=== PATIENT | male | born 1990 | race Two or more races ===

== ENCOUNTER 2025-02-02 05:55 | Emergency (ER) | payer SELFPAY ==
[2025-02-02] VITALS (13 sets, daily range): BP systolic 139–178; BP diastolic 81–116; PULSE 80–93; RESP 15–16; TEMP 36.6; O2SAT 96–100; BMI 27.3
--- NOTE | 2025-02-02 06:02 | ED_ITS ---
Discharge Plan Disposition Patient Disposition: Home, Self-Care Prescriptions Prescriptions: New metformin 1,000 mg tablet 1,000 mg PO BID Qty: 60 0RF insulin glargine [Lantus Solostar U-100 Insulin] 100 unit/mL (3 mL) insulin pen 10 unit SQ BID Qty: 30 0RF Referrals Follow up/Referrals: Provider,Referral, [Primary Care Provider] - See instructions Activity Restrictions/Add. Instructions Additional Instructions/Restrictions: Prescription for your insulin and metformin have been sent to the [facility] pharmacy. Pick this up at your earliest convenience. Call the numbers provided to you to establish care with a primary care physician and continue to work on getting her insurance transferred over for refills of your medications. If you develop any new or worsening symptoms, or if you become concerned for your health for any reason, return to the emergency department for evaluation Clinical Impressions Clinical Impression: Hyperglycemia Stand Alone Forms Stand Alone Forms: Work/School Release Print Language Print Language: Uzbek Discharge ED Provider: Alessandro Richardson General Adult HPI <Chad Steward MD - Last Filed: 02/02/25 07:06> General Chief complaint: Recheck/Abnormal Lab/Rx Stated complaint: diabetic, blood sugar over 400 Time Seen by Provider: 02/02/25 06:02 History of Present Illness HPI narrative: 35-year-old male with history of diabetes presents for hyperglycemia. He reports his blood sugars been over 400 for the last couple of days. He normally takes long-acting insulin twice a day and short acting insulin 3 times a day, but he is not sure which formulation or dose he takes. He also takes metformin. He has been unable to get his medications since he recently moved from [place]. He has been without insulin or metformin for the last 2 weeks. He reports today when he went to work he started feeling weird and so presented to get checked out. He denies any urinary symptoms, denies any chest pain or shortness of breath, denies fever at home. Related Data Previous Rx's ?Medication ?Instructions ?Recorded insulin glargine 100 unit/mL (3 10 unit (0.1 mL) SQ BID #30 mL 02/02/25 mL) subcutaneous pen (Lantus Solostar U-100 Insulin) metformin 1,000 mg tablet 1,000 mg PO BID #60 tabs 02/02/25 Allergies Allergy/AdvReac Type Severity Reaction Status Date / Time No Known Allergies Allergy Verified 02/02/25 06:30 [facility] <Chad Steward MD - Last Filed: 02/02/25 07:06> [facility] Disclaimer: The information contained in this section may have been updated after the patient was seen, as this information can be updated by other users. Medical History (Updated 02/02/25 @ 10:09 by Alessandro Richardson MD) Insulin dependent diabetes mellitus Social History (Updated 02/02/25 @ 07:06 by Chad Steward MD) Smoking Status: Current every day smoker alcohol intake: current current occupational status: employed Travel in the last 8 weeks: None Have you lived/traveled outside US in past 30 days?: No Contact w/someone who lives/traveled outside US past 30 days?: No Exposure to someone with infectious disease in past 14 days?: No Do you have a fever (greater than 100.4 F or 38 C)?: No Have you tested positive for COVID-19: No Exposed to someone with COVID-19 in past 14 days?: No Do you have a sore throat?: No Do you have a cough?: No Do you have any weakness?: No Do you have any diarrhea?: No Are you experiencing any unusual bleeding?: No Do you have any muscle aches/pain?: No Do you have any abdominal pain?: No Are you experiencing loss of taste or smell?: No <Chad Steward MD - Last Filed: 02/02/25 07:06> ROS Obtained: Yes All systems reviewed & no additional complaints except as documented Physical Exam <Chad Steward MD - Last Filed: 02/02/25 07:06> General General appearance: alert and in no apparent distress Head Head exam: atraumatic and normocephalic Eye Eye exam: Present normal appearance, PERRL and EOMI ENT ENT exam: Present normal oropharynx and normal external ear exam Neck Neck exam: Present normal inspection and full ROM Chest Chest inspection: Present normal inspection and symmetric chest wall rise; Absent tenderness Respiratory Respiratory exam: Present normal lung sounds bilaterally; Absent respiratory distress Cardiovascular Cardiovascular exam: Present regular rate and normal rhythm Abdominal Exam Abdominal exam: Present soft; Absent distention, tenderness or guarding Extremities Exam Extremities exam: Present normal inspection; Absent edema or joint swelling Back Exam Back exam: Present normal inspection; Absent tenderness Neurological Exam Neurological exam: Present alert and oriented X3; Absent motor sensory deficit Psychiatric Psychiatric exam: Present normal affect and normal mood Skin Skin exam: Present warm, dry and normal color Lymphatic Lymphatic Findings: no adenopathy Medical Decision Making <Chad Steward MD - Last Filed: 02/02/25 07:06> Medical Records Medical records reviewed: Yes I reviewed the patient's medical records. Screening: Per USPSTF and CDC recommendations, given the prevalence of disease in our region, it is our hospital?s policy to screen for HIV and viral Hepatitis for all patients aged 18 and over and those with ongoing risk factors. David Inquiry Pt receiving controlled substance: No David was queried for this patient: No Vital Signs: 02/02/25 06:06 02/02/25 06:45 02/02/25 07:00 Temperature 97.9 F Temperature Source Oral Pulse Rate 85 83 Pulse Rate [Right Radial] 93 H Respiratory Rate 16 Blood Pressure 158/111 H 163/116 H Blood Pressure [Right Arm] 178/116 H Blood Pressure Mean 118 126 Blood Pressure Mean [Right Arm] 136 Blood Pressure Source Blood Pressure Source [Right Arm] Automatic Cuff Blood Pressure Position Blood Pressure Position [Right Arm] Supine 02 Sat by Pulse Oximetry 100 98 99 Oxygen Delivery Method Room Air Room Air Room Air 02/02/25 07:27 02/02/25 07:30 02/02/25 07:45 Temperature Temperature Source Pulse Rate 80 89 86 Pulse Rate [Right Radial] Respiratory Rate 16 Blood Pressure 155/105 H 140/113 H 163/104 H Blood Pressure [Right Arm] Blood Pressure Mean 121 131 Blood Pressure Mean [Right Arm] Blood Pressure Source Blood Pressure Source [Right Arm] Blood Pressure Position Blood Pressure Position [Right Arm] 02 Sat by Pulse Oximetry 97 99 98 Oxygen Delivery Method Room Air 02/02/25 08:00 02/02/25 08:16 02/02/25 08:45 Temperature Temperature Source Pulse Rate 84 85 84 Pulse Rate [Right Radial] Respiratory Rate Blood Pressure 162/108 H 162/104 H 143/91 H Blood Pressure [Right Arm] Blood Pressure Mean 127 124 108 Blood Pressure Mean [Right Arm] Blood Pressure Source Blood Pressure Source [Right Arm] Blood Pressure Position Blood Pressure Position [Right Arm] 02 Sat by Pulse Oximetry 98 99 98 Oxygen Delivery Method Room Air Room Air Room Air 02/02/25 09:00 02/02/25 09:30 02/02/25 10:00 Temperature Temperature Source Pulse Rate 85 89 89 Pulse Rate [Right Radial] Respiratory Rate Blood Pressure 158/94 H 148/105 H 150/91 H Blood Pressure [Right Arm] Blood Pressure Mean 115 117 132 Blood Pressure Mean [Right Arm] Blood Pressure Source Blood Pressure Source [Right Arm] Blood Pressure Position Blood Pressure Position [Right Arm] 02 Sat by Pulse Oximetry 99 96 97 Oxygen Delivery Method Room Air Room Air Room Air 02/02/25 10:22 Temperature 98 F Temperature Source Oral Pulse Rate 89 Pulse Rate [Right Radial] Respiratory Rate 15 Blood Pressure 139/81 Blood Pressure [Right Arm] Blood Pressure Mean Blood Pressure Mean [Right Arm] Blood Pressure Source Automatic Cuff Blood Pressure Source [Right Arm] Blood Pressure Position Sitting Blood Pressure Position [Right Arm] 02 Sat by Pulse Oximetry Oxygen Delivery Method Room Air Lab Data Lab results reviewed: Yes I reviewed the patient's lab results. Lab Results 02/02/25 06:10: VBG pH 7.33, VBG pCO2 54.1 H, VBG pO2 26.8 L, VBG HCO3 27.7, VBG Total CO2 29.4 H, VBG O2 Saturation 47.7 L, VBG Base Excess 1.7, VBG Lactic Acid 2.1 H 02/02/25 06:12: WBC 3.3 L, RBC 4.86, Hgb 14.1, Hct 41.7 L, MCV 85.8, MCH 29.0, MCHC 33.8, RDW 11.9, Plt Count 300, MPV 9.4, Neut % (Auto) 52.2, Lymph % (Auto) 31.3, [place] % (Auto) 12.3 H, Eos % (Auto) 3.0, Baso % (Auto) 0.6, Neut # (Auto) 1.7 L, Lymph # (Auto) 1.0, [place] # (Auto) 0.4, Eos # (Auto) 0.1, Baso # (Auto) 0.0, Sodium 135 L, Potassium 5.2 H, Chloride 99, Carbon Dioxide 29, Anion Gap 12.2, BUN 15, Creatinine 0.90, Estimated Creat Clear 129, Estimated GFR 96, Est GFR ( Amer) 116, Glucose 494 H*, Calcium 9.4, Magnesium 1.6, Total Bilirubin 0.3, AST 37, ALT 39, Alkaline Phosphatase 95, Total Protein 7.6, Albumin 4.6, Globulin 3.0, Albumin/Globulin Ratio 1.5, Acetone Level None detected, SARS-CoV-2 (PCR) Not detected, Influenza A Untype (PCR) Not detected, Influenza Type B (PCR) Not detected 02/02/25 07:36: Urine Color Yellow, Urine Appearance Clear, Urine pH 7.0, Ur Specific [place] 1.010, Urine Protein Negative, Urine Glucose (UA) >=1000, Urine Ketones Negative, Urine Blood Negative, Urine Nitrate Negative, Urine Bilirubin Negative, Urine Urobilinogen 0.2, Ur Leukocyte Esterase Trace, Urine RBC None, Urine WBC None, Ur Squamous Epith Cells 3-5, Urine Bacteria Trace 02/02/25 06:12 02/02/25 06:12 Orders (Tests/Meds): ED MEDICATIONS Discontinued Medications Generic Name Dose Route Start Last Admin Trade Name Freq PRN Reason Stop Dose Admin Sodium Chloride 1,000 mls @ 999 mls/hr 02/02/25 06:15 02/02/25 06:32 Sod Chlor 0.9% 1000ml Bag IV 02/02/25 07:15 999 mls/hr .Q1H1M DAYLIN Administration Sodium Chloride 1,000 mls @ 999 mls/hr 02/02/25 07:00 02/02/25 07:30 Sod Chlor 0.9% 1000ml Bag IV 02/02/25 08:00 999 mls/hr .Q1H1M DAYLIN Administration Insulin Human Lispro 20 unit 02/02/25 07:00 02/02/25 07:17 Humalog 100 Units/Ml 10ml Vial (Ssi) SUBCUT 02/02/25 07:01 20 unit ONCE ONE Administration Metformin HCl 1,000 mg 02/02/25 07:02 02/02/25 07:18 Metformin 500mg Tablet PO 02/02/25 07:03 1,000 mg ONCE ONE Administration ORDERS Category Date Time Status Acetone, Serum (Rapid) Stat Lab 02/02/25 06:12 Completed CBC w/Auto Diff [Complete Blood Count Auto Diff] Stat Lab 02/02/25 06:12 Completed CMP [Comprehensive Metabolic Panel] Stat Lab 02/02/25 06:12 Completed Magnesium Stat Lab 02/02/25 06:12 Completed Rapid PCR Covid and Flu A/B Stat Lab 02/02/25 06:12 Completed UA [Urinalysis and Microscopic] Stat Lab 02/02/25 07:36 Completed Blood Culture Stat Micro 02/02/25 06:12 Received VBG [Venous Blood Gas] Stat RT 02/02/25 06:10 Completed Medical Decision Narrative: 35-year-old male with history of insulin-dependent diabetes presents for hyperglycemia, feeling weak, shaky, feels like his speech is not normal. History was obtained via interactive discussion with patient. On arrival, patient is [afebrile, hemodynamically stable, satting appropriately, alert, oriented x4, GCS 15], moving all extremities spontaneously. Full physical exam performed and significant for midline laparotomy scar noted. Fingerstick on arrival 493 Differential includes but is not limited to DKA, HHS, hyperglycemia, dehydration, electrolyte derangement. Patient was given 1 L IV fluid bolus for symptomatic management and correction of underlying abnormalities. Workup initiated including CBC CMP VBG UA lactate, mag blood cultures COVID flu swab. On re-evaluation, patient [remains afebrile, HD stable.] Laboratory workup independently interpreted by me and significant for []. Imaging independently interpreted by me and significant for []. See radiology read for full review of final results. EKG independently interpreted by me and significant for []. [] was considered, but deemed unnecessary due to []. Given patient history, exam and workup, patient's presentation most likely represents []. <Alessandro Richardson MD - Last Filed: 02/02/25 15:54> Vital Signs: 02/02/25 06:06 02/02/25 06:45 02/02/25 07:00 Temperature 97.9 F Temperature Source Oral Pulse Rate 85 83 Pulse Rate [Right Radial] 93 H Respiratory Rate 16 Blood Pressure 158/111 H 163/116 H Blood Pressure [Right Arm] 178/116 H Blood Pressure Mean 118 126 Blood Pressure Mean [Right Arm] 136 Blood Pressure Source Blood Pressure Source [Right Arm] Automatic Cuff Blood Pressure Position Blood Pressure Position [Right Arm] Supine 02 Sat by Pulse Oximetry 100 98 99 Oxygen Delivery Method Room Air Room Air Room Air 02/02/25 07:27 02/02/25 07:30 02/02/25 07:45 Temperature Temperature Source Pulse Rate 80 89 86 Pulse Rate [Right Radial] Respiratory Rate 16 Blood Pressure 155/105 H 140/113 H 163/104 H Blood Pressure [Right Arm] Blood Pressure Mean 121 131 Blood Pressure Mean [Right Arm] Blood Pressure Source Blood Pressure Source [Right Arm] Blood Pressure Position Blood Pressure Position [Right Arm] 02 Sat by Pulse Oximetry 97 99 98 Oxygen Delivery Method Room Air 02/02/25 08:00 02/02/25 08:16 02/02/25 08:45 Temperature Temperature Source Pulse Rate 84 85 84 Pulse Rate [Right Radial] Respiratory Rate Blood Pressure 162/108 H 162/104 H 143/91 H Blood Pressure [Right Arm] Blood Pressure Mean 127 124 108 Blood Pressure Mean [Right Arm] Blood Pressure Source Blood Pressure Source [Right Arm] Blood Pressure Position Blood Pressure Position [Right Arm] 02 Sat by Pulse Oximetry 98 99 98 Oxygen Delivery Method Room Air Room Air Room Air 02/02/25 09:00 02/02/25 09:30 02/02/25 10:00 Temperature Temperature Source Pulse Rate 85 89 89 Pulse Rate [Right Radial] Respiratory Rate Blood Pressure 158/94 H 148/105 H 150/91 H Blood Pressure [Right Arm] Blood Pressure Mean 115 117 132 Blood Pressure Mean [Right Arm] Blood Pressure Source Blood Pressure Source [Right Arm] Blood Pressure Position Blood Pressure Position [Right Arm] 02 Sat by Pulse Oximetry 99 96 97 Oxygen Delivery Method Room Air Room Air Room Air 02/02/25 10:22 Temperature 98 F Temperature Source Oral Pulse Rate 89 Pulse Rate [Right Radial] Respiratory Rate 15 Blood Pressure 139/81 Blood Pressure [Right Arm] Blood Pressure Mean Blood Pressure Mean [Right Arm] Blood Pressure Source Automatic Cuff Blood Pressure Source [Right Arm] Blood Pressure Position Sitting Blood Pressure Position [Right Arm] 02 Sat by Pulse Oximetry Oxygen Delivery Method Room Air Lab Data Lab Results 02/02/25 06:10: VBG pH 7.33, VBG pCO2 54.1 H, VBG pO2 26.8 L, VBG HCO3 27.7, VBG Total CO2 29.4 H, VBG O2 Saturation 47.7 L, VBG Base Excess 1.7, VBG Lactic Acid 2.1 H 02/02/25 06:12: WBC 3.3 L, RBC 4.86, Hgb 14.1, Hct 41.7 L, MCV 85.8, MCH 29.0, MCHC 33.8, RDW 11.9, Plt Count 300, MPV 9.4, Neut % (Auto) 52.2, Lymph % (Auto) 31.3, [place] % (Auto) 12.3 H, Eos % (Auto) 3.0, Baso % (Auto) 0.6, Neut # (Auto) 1.7 L, Lymph # (Auto) 1.0, [place] # (Auto) 0.4, Eos # (Auto) 0.1, Baso # (Auto) 0.0, Sodium 135 L, Potassium 5.2 H, Chloride 99, Carbon Dioxide 29, Anion Gap 12.2, BUN 15, Creatinine 0.90, Estimated Creat Clear 129, Estimated GFR 96, Est GFR ( Amer) 116, Glucose 494 H*, Calcium 9.4, Magnesium 1.6, Total Bilirubin 0.3, AST 37, ALT 39, Alkaline Phosphatase 95, Total Protein 7.6, Albumin 4.6, Globulin 3.0, Albumin/Globulin Ratio 1.5, Acetone Level None detected, SARS-CoV-2 (PCR) Not detected, Influenza A Untype (PCR) Not detected, Influenza Type B (PCR) Not detected 02/02/25 07:36: Urine Color Yellow, Urine Appearance Clear, Urine pH 7.0, Ur Specific [place] 1.010, Urine Protein Negative, Urine Glucose (UA) >=1000, Urine Ketones Negative, Urine Blood Negative, Urine Nitrate Negative, Urine Bilirubin Negative, Urine Urobilinogen 0.2, Ur Leukocyte Esterase Trace, Urine RBC None, Urine WBC None, Ur Squamous Epith Cells 3-5, Urine Bacteria Trace Orders (Tests/Meds): ED MEDICATIONS Discontinued Medications Generic Name Dose Route Start Last Admin Trade Name Freq PRN Reason Stop Dose Admin Sodium Chloride 1,000 mls @ 999 mls/hr 02/02/25 06:15 02/02/25 06:32 Sod Chlor 0.9% 1000ml Bag IV 02/02/25 07:15 999 mls/hr .Q1H1M [facility]LIN Administration Sodium Chloride 1,000 mls @ 999 mls/hr 02/02/25 07:00 02/02/25 07:30 Sod Chlor 0.9% 1000ml Bag IV 02/02/25 08:00 999 mls/hr .Q1H1M DAYLIN Administration Insulin Human Lispro 20 unit 02/02/25 07:00 02/02/25 07:17 Humalog 100 Units/Ml 10ml Vial (Ssi) SUBCUT 02/02/25 07:01 20 unit ONCE ONE Administration Metformin HCl 1,000 mg 02/02/25 07:02 02/02/25 07:18 Metformin 500mg Tablet PO 02/02/25 07:03 1,000 mg ONCE ONE Administration ORDERS Category Date Time Status Acetone, Serum (Rapid) Stat Lab 02/02/25 06:12 Completed CBC w/Auto Diff [Complete Blood Count Auto Diff] Stat Lab 02/02/25 06:12 Completed CMP [Comprehensive Metabolic Panel] Stat Lab 02/02/25 06:12 Completed Magnesium Stat Lab 02/02/25 06:12 Completed Rapid PCR Covid and Flu A/B Stat Lab 02/02/25 06:12 Completed UA [Urinalysis and Microscopic] Stat Lab 02/02/25 07:36 Completed Blood Culture Stat Micro 02/02/25 06:12 Received VBG [Venous Blood Gas] Stat RT 02/02/25 06:10 Completed Medical Decision Narrative: 35-year-old male with history of insulin-dependent diabetes presents for hyperglycemia, feeling weak, shaky, feels like his speech is not normal. History was obtained via interactive discussion with patient. On arrival, patient is [afebrile, hemodynamically stable, satting appropriately, alert, oriented x4, GCS 15], moving all extremities spontaneously. Full physical exam performed and significant for midline laparotomy scar noted. Fingerstick on arrival 493 Differential includes but is not limited to DKA, HHS, hyperglycemia, dehydration, electrolyte derangement. Patient was given 1 L IV fluid bolus for symptomatic management and correction of underlying abnormalities. Workup initiated including CBC CMP VBG UA lactate, mag blood cultures COVID flu swab. On re-evaluation, patient [remains afebrile, HD stable.] Laboratory workup independently interpreted by me and significant for []. Imaging independently interpreted by me and significant for []. See radiology read for full review of final results. EKG independently interpreted by me and significant for []. [] was considered, but deemed unnecessary due to []. Given patient history, exam and workup, patient's presentation most likely represents []. Alessandro Richardson MD I assumed care of this patient at 0704 pending insulin dosing, metformin, UA with plan to contact patient's home pharmacy to determine what dose of insulin and metformin he takes at home. Workup interpreted by me personally. No evidence of DKA with pH normal at 7.33, lactic acid normal at 2.1. Elevated glucose of 494, potassium elevated at 5.2. COVID and flu negative. CBC unremarkable nonactionable. [facility] pharmacy was called at 9 AM and they state that he has not filled with any [facility] pharmacy in some time but per their previous records he took 10 units of Lantus twice daily as well as 1000 mg of metformin twice daily. Will send prescription for these to local [facility] pharmacy. Will provide resources for primary care establishment and encouraged him to continue working with insurance to give his medications transferred to a pharmacy here in [place]. Return precautions were given. All questions were answered. Repeat fingerstick blood glucose was in the 130s. He was then discharged from the emergency department in stable condition. Procedures <Chad Steward MD - Last Filed: 02/02/25 07:06> Risk/Benefits of Procedure(s) Were Explained: Yes Critical Care <Chad Steward MD - Last Filed: 02/02/25 07:06> Critical Care Time Critical Care Time: No
[2025-02-02 06:18] LABS: Coronavirus 19, PCR Not Detected (NotDetected); Influenza A, PCR Not Detected (NotDetected); Influenza B, PCR Not Detected (NotDetected)
[2025-02-02 06:20] LABS: VBG Base Excess 1.7 mmol/L (-2.4-2.3); VBG HCO3 27.7 mmol/L (23-30); VBG Oxygen Saturation 47.7 % (50-70); VBG PCO2 54.1 mmol/L (35-51); VBG PH 7.33 mmol/L (7.31-7.41); VBG PO2 26.8 mmol/L (28-40); VBG Total CO2 29.4 mmol/L (23-27)
[2025-02-02 06:22] LABS: Basophils % 0.6 % (0.1-2.0); Eosinophils # 0.1 K/mm3 (0.0-0.4); Hematocrit 41.7 % (42.0-52.0); Hemoglobin 14.1 g/dL (14.1-18.0); Lymphocytes % 31.3 % (10-50); Mean Corpuscular HGB Conc 33.8 g/dL (31.8-35.4); Mean Corpuscular Volume 85.8 fl (80-94); Mean Platelet Volume 9.4 fl (7.4-10.4); Monocytes # 0.4 K/mm3 (0.1-1.0); Monocytes % 12.3 % (1.7-9.3); Neutrophils # 1.7 K/mm3 (1.8-7.8); Neutrophils % 52.2 % (37.0-80.0); Platelet Count 300 K/mm3 (142-424); Red Blood Count 4.86 M/mm3 (4.60-6.20); Red Cell Distribution Width 11.9 % (11.5-17.5); White Blood Count 3.3 K/mm3 (4.8-10.8)
[2025-02-02 06:27] LABS: Lactate Venous 2.1 mmol/L (0.4-2.0)
[2025-02-02] MEDS: 0.9 % SODIUM CHLORIDE 1000ML 1,000 ML 999 ML IV ×2 (06:32→07:30)
[2025-02-02 06:41] LABS: Acetone, Serum (Rapid) None Detected (None Detect)
[2025-02-02 06:48] LABS: Albumin Level 4.6 g/dl (3.5-5.0); Chloride 99 mmol/L (98-107)
[2025-02-02 06:49] LABS: Potassium 5.2 mmoL/L (3.5-5.1); Sodium 135 mmol/L (136-145)
[2025-02-02 06:51] LABS: Alanine Aminotransferase 39 U/L (12-78); Alkaline Phosphatase 95 U/L (38-126); Anion Gap 12.2 mEq/L (5-15); Aspartate Amino Transferase 37 U/L (17-59); Bilirubin,Total 0.3 mg/dl (0.2-1.3); Blood Urea Nitrogen 15 mg/dl (9-20); Carbon Dioxide 29 mmol/L (22.0-30.0); Creatinine Clearance Estimated 129 mL/min (50-200); Estimated Glomerular Filt Rate 96 ml/min (>60); GFR (African American) 116 ML/MIN (>60)
[2025-02-02 06:52] LABS: Albumin/Globulin Ratio 1.5 (1.1-1.8); Calcium 9.4 mg/dl (8.4-10.2); Magnesium 1.6 mg/dl (1.6-2.3); Total Protein,Serum 7.6 g/dl (6.3-8.2)
[2025-02-02 06:56] LABS: Glucose 494 mg/dl (74-100)
[2025-02-02] MEDS: humaLOG 100 UNITS/ML 10ML VIAL (SSI) 20 UNIT SUBCUT (07:17)
[2025-02-02] MEDS: METFORMIN 500MG TABLET 1000 MG PO (07:18)
[2025-02-02 07:43] LABS: Microscopic, Urine URINE MICROSCOPIC (MICROSCOPIC)
[2025-02-02 07:45] LABS: Appearance,Urine CLEAR (Clear); Bilirubin,Urine Negative (Negative); Blood, Urine Negative (Negative); Color,Urine YELLOW (Yellow); Glucose,Urine (UA) >=1000 (Negative); Ketones,Urine Negative (Negative); Leukocyte Esterase,Urine TRACE (Negative); Nitrate,Urine Negative (Negative); Protein,Urine Negative (Negative); Urobilinogen,Urine 0.2 EU/dl (0.2)
--- NOTE | 2025-02-02 07:54 | PC.NURSE ---
0730- Patient A & O x 4. No distress noted, respirations are even and unlabored. Medicated per order. Patient expresses no needs at this time. 0748- Registration at bedside.
[2025-02-02 09:14] LABS: Bacteria,Urine Trace /lpf
--- NOTE | 2025-02-02 09:16 | PC.NURSE ---
FRANDY BHATIA CALLED [facility] TO CHECK ON MEDICATIONS FOR ER MD
--- NOTE | 2025-02-02 09:18 | PC.NURSE ---
Patients glucose was 130.
[2025-02-02 10:27] LABS: Reflex Lactic Add Lactic Reflex
== END 2025-02-02 10:31 | disposition home or self-care (01) ==
PROVIDERS: Emergency Medicine; Emergency Provider Student in an Organized Health Care Education/Training Program
DX: R73.9 Hyperglycemia, unspecified (principal); Z72.0 Tobacco use
CPT/HCPCS: 80053; 81001; 82009; 82803; 83735; 85025; 87040; 87636; 96360; 96361; 99284; J7030

== ENCOUNTER 2025-04-24 14:07 | Emergency (ER) | payer OTHER, SELFPAY ==
[2025-04-24 14:12] VITALS: BP 211/137; PULSE 102; RESP 18; TEMP 36.8; O2SAT 99; BMI 30.2
[2025-04-24 14:22] VITALS: PULSE 115; O2SAT 99
--- NOTE | 2025-04-24 14:27 | XR_ITS ---
PROCEDURE INFORMATION: Exam: XR Chest Exam date and time: 04/24/2025 2:50 PM Age: 35 years old Clinical indication: Shortness of breath; Additional info: SOA TECHNIQUE: Imaging protocol: Radiologic exam of the chest. Views: 1 view. COMPARISON: No relevant prior studies available. FINDINGS: Tubes, catheters and devices: EKG leads. Lungs: Unremarkable. No consolidation. Pleural spaces: Unremarkable. No pleural effusion. No pneumothorax. Heart/Mediastinum: Unremarkable. No cardiomegaly. Bones/joints: Unremarkable. IMPRESSION: No acute findings.
[2025-04-24 14:37] VITALS: BP 150/89; PULSE 99; RESP 28; O2SAT 99
--- NOTE | 2025-04-24 14:37 | ED_ITS ---
<Statement entered by Aye Cordon DO - 04/24/25 15:28> I was consulted by the [facility], and we discussed the complexity of the problems being addressed. I approved the treatment and management plan for this patient's care in the emergency department, thus performing a substantive portion of the medical decision making. Aye Cordon DO Discharge Plan Disposition Patient Disposition: Home, Self-Care Prescriptions Prescriptions: New insulin glargine [Lantus U-100 Insulin] 100 unit/mL solution 10 unit SQ BID 30 Days Qty: 6 0RF No Action metformin 1,000 mg tablet 1,000 mg PO BID Qty: 60 0RF insulin glargine [Lantus Solostar U-100 Insulin] 100 unit/mL (3 mL) insulin pen 10 unit SQ BID Qty: 30 0RF Referrals Follow up/Referrals: Rodrigo Jewell DO [Staff Physician, Family Practice] - See instructions Provider,Referral, MD [Primary Care Provider, Medical] - See instructions Activity Restrictions/Add. Instructions Additional Instructions/Restrictions: Today you were evaluated in the emergency department, your workup was overall unremarkable. You need to establish with a PCP. Please call the number listed on these discharge papers to make a follow-up appointment. Please return to the ED for worsening of condition. Please take your medication as directed. Clinical Impressions Clinical Impression: Hyperglycemia Instructions Patient Instructions: DI for Hyperglycemia -- Adult Print Language Print Language: Polish Discharge ED Provider: Aye Cordon General Adult HPI <Josephine Boyce APRN - Last Filed: 04/24/25 15:39> General Chief complaint: Recheck/Abnormal Lab/Rx Stated complaint: insulin dependent, needs medicine Time Seen by Provider: 04/24/25 14:33 Mode of Arrival: Ambulatory Source of Information: Patient Description of Symptoms (Recalled from ER Triage Doc. by RN): PT presents to the ED for medication refill. PT needs insulin. Type 1 DM. History of Present Illness HPI narrative: patient is a 35-year-old male PMHx DMT2 who presents to the ED requesting refill of his insulin and states he is mildly short of breath. Patient [place] and has been unable to obtain a PCP. He states that his diabetes is normally well-controlled however he does not check it daily. Related Data Previous Rx's ?Medication ?Instructions ?Recorded insulin glargine 100 unit/mL (3 10 unit (0.1 mL) SQ BI D #30 mL 02/02/25 mL) subcutaneous pen (Lantus Solostar U-100 Insulin) metformin 1,000 mg tablet 1,000 mg PO BID #60 tabs insulin glargine 100 unit/mL 10 unit (0.1 mL) SQ BID 3 0 days #6 04/24/25 subcutaneous solution (Lantus mL U-100 Insulin) Allergies Allergy/AdvReac Type Severity Reaction Status Date / Time No Known Allergies Allergy Verified 02/02/25 06:30 [facility] <Josephine Boyce APRN - Last Filed: 04/24/25 15:39> [facility] Disclaimer: The information contained in this section may have been updated after the patient was seen, as this information can be updated by other users. Medical History (Updated 04/24/25 @ 15:35 by Josephine Boyce APRN) Insulin dependent diabetes mellitus Social History (Updated 02/02/25 @ 07:06 by Chad Steward MD) Smoking Status: Current every day smoker alcohol intake: current current occupational status: employed Travel in the last 8 weeks?: None Have you lived/traveled outside [place] in past 30 days?: No Contact w/someone who lives/traveled outside US past 30 days?: No Exposure to someone with infectious disease in past 14 days?: No Do you have a fever (greater than 100.4 F or 38 C)?: No Have you tested positive for COVID-19?: No Exposed to someone with COVID-19 in past 14 days?: No Do you have a sore throat?: No Do you have a cough?: No Do you have any weakness?: No Do you have any diarrhea?: No Are you experiencing any unusual bleeding?: No Do you have any muscle aches/pain?: No Do you have any abdominal pain?: No Are you experiencing loss of taste or smell?: No <Josephine Boyce APRN - Last Filed: 04/24/25 15:39> ROS Obtained: Yes Systems reviewed as appropriate & no additional complaints except as documented Physical Exam <Josephine Boyce APRN - Last Filed: 04/24/25 15:39> General General appearance: alert and in no apparent distress Head Head exam: atraumatic and normocephalic Eye Eye exam: Present normal appearance and PERRL ENT ENT exam: Present normal exam Neck Neck exam: Present normal inspection Chest Chest inspection: Present normal inspection and symmetric chest wall rise; Absent tenderness Respiratory Respiratory exam: Present normal lung sounds bilaterally Cardiovascular Cardiovascular exam: Present regular rate Abdominal Exam Abdominal exam: Present soft and normal bowel sounds; Absent tenderness Extremities Exam Extremities exam: Present normal inspection and full ROM Back Exam Back exam: Present normal inspection and full ROM Neurological Exam Neurological exam: Present alert and oriented X3 Psychiatric Psychiatric exam: Present normal affect and normal mood Skin Skin exam: Present warm and dry Medical Decision Making <Josephine Boyce APRN - Last Filed: 04/24/25 15:39> Medical Records Screening: Per USPSTF and CDC recommendations, given the prevalence of disease in our region, it is our hospital?s policy to screen for HIV and viral Hepatitis for all patients aged 18 and over and those with ongoing risk factors. David Inquiry Pt receiving controlled substance: No Vital Signs: 04/24/25 14:12 04/24/25 14:22 04/24/25 14:37 Temperature 98.2 F Temperature Source Oral Pulse Rate 115 H 99 H Pulse Rate [Right] 102 H Respiratory Rate 18 28 H Blood Pressure 150/89 H Blood Pressure [Right Arm] 211/137 H Blood Pressure Mean Blood Pressure Mean [Right Arm] 161 Blood Pressure Source Blood Pressure Position 02 Sat by Pulse Oximetry 99 99 99 Oxygen Delivery Method Room Air 04/24/25 15:00 04/24/25 15:41 Temperature 98.1 F Temperature Source Oral Pulse Rate 90 78 Pulse Rate [Right] Respiratory Rate 26 H 15 Blood Pressure 147/89 H 156/99 H Blood Pressure [Right Arm] Blood Pressure Mean 104 Blood Pressure Mean [Right Arm] Blood Pressure Source Automatic Cuff Blood Pressure Position Supine 02 Sat by Pulse Oximetry 100 Oxygen Delivery Method Room Air Lab Data Lab Results 04/24/25 14:31: WBC 7.3, RBC 5.14, Hgb 14.4, Hct 42.0, MCV 81.7, MCH 28.0, MCHC 34.3, RDW 11.8, Plt Count 309, MPV 9.0, Neut % (Auto) 65.7, Lymph % (Auto) 25.0, Stevens % (Auto) 7.3, Eos % (Auto) 1.6, Baso % (Auto) 0.1, Neut # (Auto) 4.8, Lymph # (Auto) 1.8, Stevens # (Auto) 0.5, Eos # (Auto) 0.1, Baso # (Auto) 0.0, D-Dimer 0.43, Sodium 136, Potassium 4.3, Chloride 99, Carbon Dioxide 28, Anion Gap 13.3, BUN 15, Creatinine 0.70, Estimated Creat Clear 172, Estimated GFR 128, Est GFR ( Amer) 155, Glucose 324 H, Calcium 9.3, Total Bilirubin 0.4, AST 26, ALT 24, Alkaline Phosphatase 73, Troponin I < 0.01, Total Protein 7.8, Albumin 4.4, Globulin 3.4 H, Albumin/Globulin Ratio 1.3, Plasma/Serum Alcohol < 10 04/24/25 15:07: Urine Opiates Screen Negative, Urine Methadone Screen Negative, Ur Barbituates Screen Negative, Ur Phencyclidine Scrn Negative, Ur Amphetamines Screen Negative, U Benzodiazepines Scrn Negative, Urine Cocaine Screen Negative, U Marijuana (THC) Screen Negative 04/24/25 14:31 04/24/25 14:31 Orders (Tests/Meds): ED MEDICATIONS Discontinued Medications Generic Name Dose Route Start Last Admin Trade Name Freq PRN Reason Stop Dose Admin Sodium Chloride 500 mls @ 999 mls/hr 04/24/25 14:27 04/24/25 14:42 Sod Chlor 0.9% 1000ml Bag IV 04/24/25 14:57 999 mls/hr .Q31M ONE Administration ORDERS Category Date Time Status CXR --portable [XR chest portable] Stat Exams 04/24/25 14:27 Completed CBC w/Auto Diff [Complete Blood Count Auto Diff] Stat Lab 04/24/25 14:31 Completed CMP [Comprehensive Metabolic Panel] Stat Lab 04/24/25 14:31 Completed D-Dimer Stat Lab 04/24/25 14:31 Completed Ethyl Alcohol Stat Lab 04/24/25 14:31 Completed Trop I [Troponin I] Stat Lab 04/24/25 14:31 Completed UDS [Drug Screen,Urine] Stat Lab 04/24/25 15:07 Completed Medical Decision Narrative: In summary, patient is a 35-year-old male PMHx DMT2 who presents to the ED requesting refill of his insulin and states he is mildly short of breath. Patient states he [place] and has been unable to obtain a PCP. He states that his diabetes is normally well-controlled however he does not check it daily. 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 Patient states he is not aware of having any additional health problems. Denies fever, chills, headache, visual disturbances, neck pain, chest pain, abdominal pain, back pain. Upon initial evaluation patient alert and oriented. He is tachycardic, hypertensive and afebrile. His physical exam is unremarkable otherwise. Discussed with patient we will obtain EKG, labs and imaging. Records reviewed, on 02/02/2025 patient obtained a prescription for insulin and metformin through our ED. He states he is currently ran out of this medication. CBC unremarkable for any leukocytosis, stable H&H. D-dimer 0.43. CMP remarkable for glucose of 324, no other actionable abnormalities. Serum alcohol < 10. Trop < 0.01. Upon reassessment, patient states his condition has improved. Blood pressure now 147/89 without treatment, heart rate 94. My independent and informal interpretation of the chest x-ray is unremarkable for any acute findings. Discussed with patient the importance of establishing with PCP to remain obtain control of his diabetes. Patient states that he does not want a prescription for metformin as it made him have diarrhea and vomiting however he would like a prescription for his insulin refilled. I discussed with him return precautions to the ED and patient verbalized understanding. He was hemodynamically stable and ambulatory without difficulty upon leaving the ED. <Aye Cordon, DO - Last Filed: 04/24/25 14:44> Vital Signs: 04/24/25 14:12 04/24/25 14:22 04/24/25 14:37 Temperature 98.2 F Temperature Source Oral Pulse Rate 115 H 99 H Pulse Rate [Right] 102 H Respiratory Rate 18 28 H Blood Pressure 150/89 H Blood Pressure [Right Arm] 211/137 H Blood Pressure Mean Blood Pressure Mean [Right Arm] 161 Blood Pressure Source Blood Pressure Position 02 Sat by Pulse Oximetry 99 99 99 Oxygen Delivery Method Room Air 04/24/25 15:00 04/24/25 15:41 Temperature 98.1 F Temperature Source Oral Pulse Rate 90 78 Pulse Rate [Right] Respiratory Rate 26 H 15 Blood Pressure 147/89 H 156/99 H Blood Pressure [Right Arm] Blood Pressure Mean 104 Blood Pressure Mean [Right Arm] Blood Pressure Source Automatic Cuff Blood Pressure Position Supine 02 Sat by Pulse Oximetry 100 Oxygen Delivery Method Room Air Lab Data Lab Results 04/24/25 14:31: WBC 7.3, RBC 5.14, Hgb 14.4, Hct 42.0, MCV 81.7, MCH 28.0, MCHC 34.3, RDW 11.8, Plt Count 309, MPV 9.0, Neut % (Auto) 65.7, Lymph % (Auto) 25.0, Stevens % (Auto) 7.3, Eos % (Auto) 1.6, Baso % (Auto) 0.1, Neut # (Auto) 4.8, Lymph # (Auto) 1.8, Stevens # (Auto) 0.5, Eos # (Auto) 0.1, Baso # (Auto) 0.0, D-Dimer 0.43, Sodium 136, Potassium 4.3, Chloride 99, Carbon Dioxide 28, Anion Gap 13.3, BUN 15, Creatinine 0.70, Estimated Creat Clear 172, Estimated GFR 128, Est GFR ( Amer) 155, Glucose 324 H, Calcium 9.3, Total Bilirubin 0.4, AST 26, ALT 24, Alkaline Phosphatase 73, Troponin I < 0.01, Total Protein 7.8, Albumin 4.4, Globulin 3.4 H, Albumin/Globulin Ratio 1.3, Plasma/Serum Alcohol < 10 04/24/25 15:07: Urine Opiates Screen Negative, Urine Methadone Screen Negative, Ur Barbituates Screen Negative, Ur Phencyclidine Scrn Negative, Ur Amphetamines Screen Negative, U Benzodiazepines Scrn Negative, Urine Cocaine Screen Negative, U Marijuana (THC) Screen Negative Orders (Tests/Meds): ED MEDICATIONS Discontinued Medications Generic Name Dose Route Start Last Admin Trade Name Freq PRN Reason Stop Dose Admin Sodium Chloride 500 mls @ 999 mls/hr 04/24/25 14:27 04/24/25 14:42 Sod Chlor 0.9% 1000ml Bag IV 04/24/25 14:57 999 mls/hr .Q31M ONE Administration ORDERS Category Date Time Status CXR --portable [XR chest portable] Stat Exams 04/24/25 14:27 Completed CBC w/Auto Diff [Complete Blood Count Auto Diff] Stat Lab 04/24/25 14:31 Completed CMP [Comprehensive Metabolic Panel] Stat Lab 04/24/25 14:31 Completed D-Dimer Stat Lab 04/24/25 14:31 Completed Ethyl Alcohol Stat Lab 04/24/25 14:31 Completed Trop I [Troponin I] Stat Lab 04/24/25 14:31 Completed UDS [Drug Screen,Urine] Stat Lab 04/24/25 15:07 Completed ECG Data Tracing #1: I reviewed this ECG and interpreted as documented below: Sinus tachycardia at a ventricular rate of [address] changes concerning for STEMI. Some motion artifact in V1. Normal intervals ECG initial impression date: 04/24/25 ECG initial impression time: 14:38 <Silvestre Raya MD - Last Filed: 04/24/25 18:22> Vital Signs: 04/24/25 14:12 04/24/25 14:22 04/24/25 14:37 Temperature 98.2 F Temperature Source Oral Pulse Rate 115 H 99 H Pulse Rate [Right] 102 H Respiratory Rate 18 28 H Blood Pressure 150/89 H Blood Pressure [Right Arm] 211/137 H Blood Pressure Mean Blood Pressure Mean [Right Arm] 161 Blood Pressure Source Blood Pressure Position 02 Sat by Pulse Oximetry 99 99 99 Oxygen Delivery Method Room Air 04/24/25 15:00 04/24/25 15:41 Temperature 98.1 F Temperature Source Oral Pulse Rate 90 78 Pulse Rate [Right] Respiratory Rate 26 H 15 Blood Pressure 147/89 H 156/99 H Blood Pressure [Right Arm] Blood Pressure Mean 104 Blood Pressure Mean [Right Arm] Blood Pressure Source Automatic Cuff Blood Pressure Position Supine 02 Sat by Pulse Oximetry 100 Oxygen Delivery Method Room Air Lab Data Lab Results 04/24/25 14:31: WBC 7.3, RBC 5.14, Hgb 14.4, Hct 42.0, MCV 81.7, MCH 28.0, MCHC 34.3, RDW 11.8, Plt Count 309, MPV 9.0, Neut % (Auto) 65.7, Lymph % (Auto) 25.0, Stevens % (Auto) 7.3, Eos % (Auto) 1.6, Baso % (Auto) 0.1, Neut # (Auto) 4.8, Lymph # (Auto) 1.8, Stevens # (Auto) 0.5, Eos # (Auto) 0.1, Baso # (Auto) 0.0, D-Dimer 0.43, Sodium 136, Potassium 4.3, Chloride 99, Carbon Dioxide 28, Anion Gap 13.3, BUN 15, Creatinine 0.70, Estimated Creat Clear 172, Estimated GFR 128, Est GFR ( Amer) 155, Glucose 324 H, Calcium 9.3, Total Bilirubin 0.4, AST 26, ALT 24, Alkaline Phosphatase 73, Troponin I < 0.01, Total Protein 7.8, Albumin 4.4, Globulin 3.4 H, Albumin/Globulin Ratio 1.3, Plasma/Serum Alcohol < 10 04/24/25 15:07: Urine Opiates Screen Negative, Urine Methadone Screen Negative, Ur Barbituates Screen Negative, Ur Phencyclidine Scrn Negative, Ur Amphetamines Screen Negative, U Benzodiazepines Scrn Negative, Urine Cocaine Screen Negative, U Marijuana (THC) Screen Negative Orders (Tests/Meds): ED MEDICATIONS Discontinued Medications Generic Name Dose Route Start Last Admin Trade Name Freq PRN Reason Stop Dose Admin Sodium Chloride 500 mls @ 999 mls/hr 04/24/25 14:27 04/24/25 14:42 Sod Chlor 0.9% 1000ml Bag IV 04/24/25 14:57 999 mls/hr .Q31M ONE Administration ORDERS Category Date Time Status CXR --portable [XR chest portable] Stat Exams 04/24/25 14:27 Completed CBC w/Auto Diff [Complete Blood Count Auto Diff] Stat Lab 04/24/25 14:31 Completed CMP [Comprehensive Metabolic Panel] Stat Lab 04/24/25 14:31 Completed D-Dimer Stat Lab 04/24/25 14:31 Completed Ethyl Alcohol Stat Lab 04/24/25 14:31 Completed Trop I [Troponin I] Stat Lab 04/24/25 14:31 Completed UDS [Drug Screen,Urine] Stat Lab 04/24/25 15:07 Completed Medical Decision Narrative: In summary, patient is a 35-year-old male PMHx DMT2 who presents to the ED requesting refill of his insulin and states he is mildly short of breath. Patient states [place] and has been unable to obtain a PCP. He states that his diabetes is normally well-controlled however he does not check it daily. 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 Patient states he is not aware of having any additional health problems. Denies fever, chills, headache, visual disturbances, neck pain, chest pain, abdominal pain, back pain. Upon initial evaluation patient alert and oriented. He is tachycardic, hypertensive and afebrile. His physical exam is unremarkable otherwise. Discussed with patient we will obtain EKG, labs and imaging. Records reviewed, on 02/02/2025 patient obtained a prescription for insulin and metformin through our ED. He states he is currently ran out of this medication. CBC unremarkable for any leukocytosis, stable H&H. D-dimer 0.43. CMP remarkable for glucose of 324, no other actionable abnormalities. Serum alcohol < 10. Trop < 0.01. Upon reassessment, patient states his condition has improved. Blood pressure now 147/89 without treatment, heart rate 94. My independent and informal interpretation of the chest x-ray is unremarkable for any acute findings. Discussed with patient the importance of establishing with PCP to remain obtain control of his diabetes. Patient states that he does not want a prescription for metformin as it made him have diarrhea and vomiting however he would like a prescription for his insulin refilled. I discussed with him return precautions to the ED and patient verbalized understanding. He was hemodynamically stable and ambulatory without difficulty upon leaving the ED. I was consulted by the [facility], and we discussed the complexity of the problems being addressed. I approved the treatment and management plan for this patient's care in the emergency department, thus performing a substantive portion of the medical decision making. Silvestre Raya MD Critical Care <Josephine Boyce APRN - Last Filed: 04/24/25 15:39> Critical Care Time Critical Care Time: No
[2025-04-24] MEDS: 0.9 % SODIUM CHLORIDE 1000ML 500 ML 999 ML IV (14:42)
[2025-04-24 14:46] LABS: Basophils % 0.1 % (0.1-2.0); Eosinophils # 0.1 Kmm3 (0.0-0.4); Eosinophils % 1.6 % (0.1-12.0); Hemoglobin 14.4 g/dL (14.1-18.0); Immature Granulocytes # 0.02 10^3uL; Immature Granulocytes % 0.3 %; Lymphocytes # 1.8 K/mm3 (0.7-4.5); Mean Corpuscular HGB Conc 34.3 g/dL (31.8-35.4); Mean Corpuscular Volume 81.7 fl (80-94); Monocytes # 0.5 K/mm3 (0.1-1.0); Monocytes % 7.3 % (1.7-9.3); Neutrophils # 4.8 K/mm3 (1.8-7.8); Neutrophils % 65.7 % (37.0-80.0); Nucleated Red Blood Cells # 0 10^3/uL; Nucleated Red Blood Cells % 0 %; Platelet Count 309 K/mm3 (142-424); Red Blood Count 5.14 M/mm3 (4.60-6.20); Red Cell Distribution Width 11.8 % (11.5-17.5); Red Cell Distribution Width-SD 34.9 fL; White Blood Count 7.3 K/mm3 (4.8-10.8)
--- NOTE | 2025-04-24 14:46 | ECG_ITS ---
APPROVED REPORT Exam: Resting ECG HR:103 bpm ECG Measurements Heart Rate 103 AXES RI 178 P 62 QRSd 100 QRS 61 QT 336 T 71 QTc 395 Conclusion SINUS TACHYCARDIA ABNORMAL RHYTHM ECG UNCONFIRMED REPORT Electronically signed by : MERCEDEZ RAMOS, 04/25/2025 06:41:36
[2025-04-24 15:00] VITALS: BP 147/89; PULSE 90; RESP 26; O2SAT 100
[2025-04-24 15:01] LABS: Alanine Aminotransferase 24 U/L (12-78); Albumin Level 4.4 g/dl (3.5-5.0); Albumin/Globulin Ratio 1.3 (1.1-1.8); Alkaline Phosphatase 73 U/L (38-126); Anion Gap 13.3 mEq/L (5-15); Aspartate Amino Transferase 26 U/L (17-59); Bilirubin,Total 0.4 mg/dl (0.2-1.3); Blood Urea Nitrogen 15 mg/dl (9-20); Calcium 9.3 mg/dl (8.4-10.2); Carbon Dioxide 28 mmol/L (22.0-30.0); Chloride 99 mmol/L (98-107); Creatinine Clearance Estimated 172 mL/min (50-200); Estimated Glomerular Filt Rate 128 ml/min (>60); GFR (African American) 155 ML/MIN (>60); Globulin 3.4 g/dL (1.3-3.2); Glucose 324 mg/dl (74-100); Potassium 4.3 mmoL/L (3.5-5.1); Sodium 136 mmol/L (136-145); Total Protein,Serum 7.8 g/dl (6.3-8.2)
[2025-04-24 15:07] LABS: D-Dimer 0.43 ug/mL (0.0-0.5)
[2025-04-24 15:09] LABS: Ethyl Alcohol < 10 mg/dl (0-10)
[2025-04-24 15:26] LABS: Troponin I < 0.01 ng/ml (0.00-0.034)
[2025-04-24 15:26] LABS: Amphetamine/Metha Screen,Urine Negative ng/ml (<1000)
[2025-04-24 15:27] LABS: Barbiturates Screen,Urine Negative ng/ml (<200)
[2025-04-24 15:28] LABS: Benzodiazepines Screen,Urine Negative ng/ml (<200); Cannabinoid Screen,Urine Negative ng/ml (<50)
[2025-04-24 15:29] LABS: Cocaine Screen,Urine Negative ng/ml (<300)
[2025-04-24 15:30] LABS: Methadone Screen,Urine Negative ng/ml (<300); Opiate Screen,Urine Negative ng/ml (<300)
[2025-04-24 15:31] LABS: Phencyclidine Screen,Urine Negative ng/ml (<25)
[2025-04-24 15:41] VITALS: BP 156/99; PULSE 78; RESP 15; TEMP 36.7; O2SAT 99
== END 2025-04-24 15:42 | disposition home or self-care (01) ==
PROVIDERS: Nurse Practitioner; Emergency Provider Emergency Medicine
DX: R73.9 Hyperglycemia, unspecified (principal); F17.210 Nicotine dependence, cigarettes, uncomplicated; I10 Essential (primary) hypertension; E83.42 Hypomagnesemia
CPT/HCPCS: 71045; 80053; 80307; 80320; 84484; 85025; 85378; 93005; 96360; 99284; J7030

== ENCOUNTER 2025-05-05 08:15 | Emergency (ER) | payer OTHER, SELFPAY ==
[2025-05-05] VITALS (7 sets, daily range): BP systolic 167–187; BP diastolic 112–133; PULSE 90–115; RESP 11–25; TEMP 36.8; O2SAT 97–100; BMI 28.1
--- NOTE | 2025-05-05 08:23 | ECG_ITS ---
APPROVED REPORT Exam: Resting ECG HR:111 bpm ECG Measurements Heart Rate 111 AXES DC 144 P 63 QRSd 87 QRS 146 QT 327 T 42 QTc 393 Conclusion SINUS TACHYCARDIA POSSIBLE RIGHT VENTRICULAR HYPERTROPHY [SOME/ALL OF: PROMINENT R IN V1, LATE TRANSITION, RAD, DENY, SSS] SEPTAL MYOCARDIAL INFARCTION , OF INDETERMINATE AGE [40+ ms Q WAVE IN V1/V2] ABNORMAL ECG UNCONFIRMED REPORT Electronically signed by : Danny Valladares, 05/05/2025 15:40:27
--- NOTE | 2025-05-05 08:30 | XR_ITS ---
FINAL REPORT CLINICAL HISTORY: dyspnea COMPARISON: 04/24/2025 FINDINGS: SINGLE VIEW CHEST The heart is normal in size. Lordotic positioning was obtained. The mediastinum is unremarkable. The lungs are clear. There is no pneumothorax. IMPRESSION: No acute process. Reviewed, Interpreted and Dictated by Darryl Black MD Transcribed by Quita Queen Authenticated and [facility]
--- NOTE | 2025-05-05 08:34 | PC.NURSE ---
call made to resp for VBG
--- NOTE | 2025-05-05 08:34 | PC.NURSE ---
call made to lab for VBG
--- NOTE | 2025-05-05 08:34 | PC.NURSE ---
RAD in room at this time for bedside xray
[2025-05-05 08:37] LABS: Basophils % 0.2 % (0.1-2.0); Eosinophils # 0.1 Kmm3 (0.0-0.4); Eosinophils % 1.5 % (0.1-12.0); Hemoglobin 15.3 g/dL (14.1-18.0); Immature Granulocytes # 0.01 10^3uL; Immature Granulocytes % 0.2 %; Lymphocytes # 1.5 K/mm3 (0.7-4.5); Lymphocytes % 23.7 % (10-50); Mean Corpuscular HGB Conc 35.6 g/dL (31.8-35.4); Mean Corpuscular Hemoglobin 28.7 pg (27.0-31.2); Mean Corpuscular Volume 80.5 fl (80-94); Mean Platelet Volume 9.1 fl (7.4-10.4); Monocytes # 0.5 K/mm3 (0.1-1.0); Monocytes % 8.4 % (1.7-9.3); Neutrophils # 4.1 K/mm3 (1.8-7.8); Nucleated Red Blood Cells # 0 10^3/uL; Nucleated Red Blood Cells % 0 %; Platelet Count 299 K/mm3 (142-424); Red Blood Count 5.34 M/mm3 (4.60-6.20); Red Cell Distribution Width 11.9 % (11.5-17.5); Red Cell Distribution Width-SD 34.1 fL; White Blood Count 6.2 K/mm3 (4.8-10.8)
[2025-05-05 08:39] LABS: Lactate Venous 1.7 mmol/L (0.4-2.0); VBG Base Excess 1.1 mmol/L (-2.4-2.3); VBG HCO3 26.2 mmol/L (23-30); VBG Oxygen Saturation 70.8 % (50-70); VBG PCO2 44.5 mmol/L (35-51); VBG PH 7.39 mmol/L (7.31-7.41); VBG PO2 35.6 mmol/L (28-40); VBG Total CO2 27.5 mmol/L (23-27)
--- NOTE | 2025-05-05 08:39 | HMH.EDGENADL ---
Discharge Plan Disposition Patient Disposition: Home, Self-Care Prescriptions Prescriptions: No Action insulin glargine [Lantus U-100 Insulin] 100 unit/mL solution 10 unit SQ BID 30 Days Qty: 6 0RF metformin 1,000 mg tablet 1,000 mg PO BID Qty: 60 0RF insulin glargine [Lantus Solostar U-100 Insulin] 100 unit/mL (3 mL) insulin pen 10 unit SQ BID Qty: 30 0RF Referrals Follow up/Referrals: Rodrigo Medina MD [Staff Physician, Cardiology] - See instructions Mely Caldwell APRN [Primary Care Provider, Family Practice] - See instructions Activity Restrictions/Add. Instructions Additional Instructions/Restrictions: Your symptoms are almost certainly secondary to significant dehydration from prolonged elevated blood sugars. Your hemoglobin A1c as discussed was 9.7 indicating that your average blood sugar over the last several months was in the mid 200s. This is poorly controlled with regards to diabetes. You need to closely follow-up with your primary care doctor as previously scheduled and I would highly recommend involvement with an client service administrator which you can discuss with your primary care doctor. Drink plenty of fluids and in particular when you are sweating make sure that you are drinking salt and sugar containing fluids such as Gatorade or Powerade. Lastly if you continue to have lightheadedness or feel like you are going to pass out despite aggressive hydration you may follow-up with a behavior support specialist and a referral has been placed. Clinical Impressions Clinical Impression: Hyperglycemia, Dehydration, Dizziness, Hypomagnesemia Stand Alone Forms Stand Alone Forms: Work/School Release Instructions Patient Instructions: DI for Syncope in Adults (Fainting), DI for Syncope in Children (Fainting) Print Language Print Language: Sudanese Discharge ED Provider: Froylan Valladares General Adult HPI General Chief complaint: Syncope Stated complaint: Blood sugar <400- High bp Time Seen by Provider: 05/05/25 08:21 Mode of Arrival: Ambulatory Source of Information: Patient Description of Symptoms (Recalled from ER Triage Doc. by RN): lightheaded near syncope. nausea,sweating elevated blood glucose. states he has been feeling this way on and off for a while. History of Present Illness HPI narrative: Patient is a 35-year-old presents today with lightheadedness and dizziness since near syncope. Has a known history of diabetes was diagnosed 5 years ago he states he supposed to been on insulin the last 3 years however has had difficulty given insurance status has been unable to have a primary care doctor up until recently. He has an appointment made with Lynne on Friday but has never seen a primary care doctor for this and has relied on emergency departments to get his medications. He states he has been doing much better lately taking his insulin as well as his metformin. However he states he has been having increased thirst hunger and urine output. Also endorses some chest pain and some mild shortness of breath. Not exertional and on radiating with no diaphoresis associated with this. No hemoptysis or lower extremity edema or swelling. Related Data Previous Rx's ?Medication ?Instructions ?Recorded insulin glargine 100 unit/mL (3 10 unit (0.1 mL) SQ BID #30 mL 02/02/25 mL) subcutaneous pen (Lantus Solostar U-100 Insulin) metformin 1,000 mg tablet 1,000 mg PO BID #60 tabs 02/02/25 insulin glargine 100 unit/mL 10 unit (0.1 mL) SQ BID 30 days #6 04/24/25 subcutaneous solution (Lantus mL U-100 Insulin) Allergies Allergy/AdvReac Type Severity Reaction Status Date / Time No Known Allergies Allergy Verified 02/02/25 06:30 [facility] Disclaimer: The information contained in this section may have been updated after the patient was seen, as this information can be updated by other users. Medical History (Updated 05/05/25 @ 09:34 by Froylan Valladares MD) Insulin dependent diabetes mellitus Social History (Updated 02/02/25 @ 07:06 by Chad Steward MD) Smoking Status: Current every day smoker alcohol intake: current current occupational status: employed Travel in the last 8 weeks?: None Have you lived/traveled outside US in past 30 days?: No Contact w/someone who lives/traveled outside US past 30 days?: No Exposure to someone with infectious disease in past 14 days?: No Do you have a fever (greater than 100.4 F or 38 C)?: No Have you tested positive for COVID-19?: No Exposed to someone with COVID-19 in past 14 days?: No Do you have a sore throat?: No Do you have a cough?: No Do you have any weakness?: No Do you have any diarrhea?: No Are you experiencing any unusual bleeding?: No Do you have any muscle aches/pain?: No Do you have any abdominal pain?: No Are you experiencing loss of taste or smell?: No ROS Obtained: Yes All systems reviewed & no additional complaints except as documented Physical Exam General General appearance: alert and in no apparent distress Respiratory Respiratory exam: Present normal lung sounds bilaterally and respiratory distress Cardiovascular Cardiovascular exam: Present tachycardia Neurological Exam Neurological exam: Present alert, oriented X3, CN II-XII intact and normal gait; Absent motor sensory deficit Medical Decision Making Medical Records Screening: Per USPSTF and CDC recommendations, given the prevalence of disease in our region, it is our hospital?s policy to screen for HIV and viral Hepatitis for all patients aged 18 and over and those with ongoing risk factors. David Inquiry Pt receiving controlled substance: No Vital Signs: 05/05/25 08:24 05/05/25 08:31 05/05/25 09:00 Temperature 98.2 F Temperature Source Oral Pulse Rate 112 H Pulse Rate [Right] 115 H Respiratory Rate 20 24 25 H Blood Pressure 167/126 H 178/123 H Blood Pressure [Right Arm] 171/133 H Blood Pressure Mean [Right Arm] 145 02 Sat by Pulse Oximetry 99 100 99 Oxygen Delivery Method Room Air Room Air 05/05/25 09:30 05/05/25 10:00 05/05/25 10:15 Temperature Temperature Source Pulse Rate 99 H 97 H 90 Pulse Rate [Right] Respiratory Rate 11 L 21 20 Blood Pressure 173/129 H 187/123 H 187/123 H Blood Pressure [Right Arm] Blood Pressure Mean [Right Arm] 02 Sat by Pulse Oximetry 100 99 99 Oxygen Delivery Method Room Air Room Air Lab Data Lab results reviewed: Yes I reviewed the patient's lab results. Lab Results 05/05/25 08:30: WBC 6.2, RBC 5.34, Hgb 15.3, Hct 43.0, MCV 80.5, MCH 28.7, MCHC 35.6 H, RDW 11.9, Plt Count 299, MPV 9.1, Neut % (Auto) 66.0, Lymph % (Auto) 23.7, [place] % (Auto) 8.4, Eos % (Auto) 1.5, Baso % (Auto) 0.2, Neut # (Auto) 4.1, Lymph # (Auto) 1.5, [place] # (Auto) 0.5, Eos # (Auto) 0.1, Baso # (Auto) 0.0, D-Dimer 0.39, Sodium 133 L, Potassium 4.8, Chloride 99, Carbon Dioxide 28, Anion Gap 10.8, BUN 16, Creatinine 0.70, Estimated Creat Clear 170, Estimated GFR 128, Est GFR ( Amer) 155, Glucose 443 H*, Hemoglobin A1c 9.7 H, Calcium 9.4, Phosphorus 3.4, Magnesium 1.5 L, Total Bilirubin 0.6, AST 28, ALT 43, Alkaline Phosphatase 87, Troponin I < 0.01, NT-Pro-B Natriuret Pep 38.6, Total Protein 8.1, Albumin 4.7, Globulin 3.4 H, Albumin/Globulin Ratio 1.4, TSH 2.97, HCV Ab WILLARD w/Rflx PCR Qn Negative, HIV Ag/Ab Combo Qual Negative 05/05/25 08:34: VBG pH 7.39, VBG pCO2 44.5, VBG pO2 35.6, VBG HCO3 26.2, VBG Total CO2 27.5 H, VBG O2 Saturation 70.8 H, VBG Base Excess 1.1, VBG Lactic Acid 1.7 05/05/25 08:46: Urine Color Yellow, Urine Appearance Clear, Urine pH 6.0, Ur Specific [place] 1.010, Urine Protein Negative, Urine Glucose (UA) 3+, Urine Ketones Negative, Urine Blood Negative, Urine Nitrate Negative, Urine Bilirubin Negative, Urine Urobilinogen 0.2, Ur Leukocyte Esterase Trace, Urine RBC None, Urine WBC 3-5, Ur Squamous Epith Cells 3-5, Urine Bacteria Trace, Urine Opiates Screen Negative, Urine Methadone Screen Negative, Ur Barbituates Screen Negative, Ur Phencyclidine Scrn Negative, Ur Amphetamines Screen Negative, U Benzodiazepines Scrn Negative, Urine Cocaine Screen Negative, U Marijuana (THC) Screen Negative 05/05/25 08:30 05/05/25 08:30 Orders (Tests/Meds): ED MEDICATIONS Generic Name Dose Route Start Last Admin Trade Name Freq PRN Reason Stop Dose Admin Lactated Ringer's 1,000 mls @ 999 mls/hr 05/05/25 10:45 05/05/25 10:37 Lactated Ringer's 1000 Ml Bag IV 05/05/25 11:45 999 mls/hr .Q1H1M DAYLIN Administration Discontinued Medications Generic Name Dose Route Start Last Admin Trade Name Kiran ELIASN Reason Stop Dose Admin Lactated Ringer's 1,000 mls @ 999 mls/hr 05/05/25 08:30 05/05/25 08:41 Lactated Ringer's 1000 Ml Bag IV 05/05/25 09:30 999 mls/hr .Q1H1M DAYLIN Administration Magnesium Sulfate 2 gm in 50 mls @ 50 mls/hr 05/05/25 09:33 05/05/25 09:36 Magnesium Sulfate 2gm/50ml Premix IV 05/05/25 10:32 50 mls/hr ONCE ONE Administration Ondansetron HCl 4 mg 05/05/25 08:30 05/05/25 08:41 Ondansetron 4mg/2ml Vial IV 05/05/25 08:31 4 mg ONCE ONE Administration ORDERS Category Date Time Status CXR --portable [XR chest portable] Stat Exams 05/05/25 08:30 Completed BNP [NT Pro Brain Natriuretic Pep.] Stat Lab 05/05/25 08:30 Completed CBC w/Auto Diff [Complete Blood Count Auto Diff] Stat Lab 05/05/25 08:30 Completed CMP [Comprehensive Metabolic Panel] Stat Lab 05/05/25 08:30 Completed D-Dimer Stat Lab 05/05/25 08:30 Completed HIV Combo Stat Lab 05/05/25 08:30 Completed Hemoglobin A1C Stat Lab 05/05/25 08:30 Completed Hepatitis C Ab Qual. W/ RFX Stat Lab 05/05/25 08:30 Completed Magnesium Stat Lab 05/05/25 08:30 Completed Phosphorous Stat Lab 05/05/25 08:30 Completed TSH [Thyroid Stimulating Hormone] Stat Lab 05/05/25 08:30 Completed Trop I [Troponin I] Stat Lab 05/05/25 08:30 Completed Troponin I Q3H Lab 05/05/25 11:45 Ordered Troponin I Q3H Lab 05/05/25 14:45 Ordered UA [Urinalysis and Microscopic] Stat Lab 05/05/25 08:46 Completed UDS [Drug Screen,Urine] Stat Lab 05/05/25 08:46 Completed Venous Blood Gas Stat RT 05/05/25 08:34 Completed ECG Data Tracing #1: I reviewed this ECG and interpreted as documented below: Ventricular rate of 111 there is an S wave in lead I concerning for right axis deviation and possible right ventricular hypertrophy no other acute ischemic changes noted no significant conduction abnormalities HEART Score History (anamnesis): Slightly suspicious ECG: Non-specific disturbance Age: <45 years Risk factors: 1-2 risk factors Troponin: </= normal limit HEART Score: 2 Medical Decision Narrative: Patient is a 35-year-old male presents today with lightheadedness and near syncope. Most likely this is volume related secondary to poorly controlled diabetes osmotic diuresis and dehydration. EKG did demonstrate sinus tachycardia with some evidence of potential right axis deviation/right ventricular hypertrophy. Given the fact he has some mild dyspnea shortness of breath and is tachycardic we will also obtain a D-dimer and work him up for any cardiopulmonary emergencies such as ACS etc. IV fluids Zofran have been administered as he has some mild nausea as well. I will also obtain an A1c to see where his glucose has been in the last several months. Much of this seems to be socially related given the fact that he has not been able to get his medications there primary care doctor as rule out emergency department which is a problem. We will address those issues on the back end. Reassessment 11:21 AM patient was placed in ED [facility] after his first liter of fluids given the fact that he was feeling somewhat better and second liter was hung. On my serial reassessments the patient is feeling much better. This all most likely secondary to poorly controlled diabetes and osmotic diuresis and dehydration as discussed. Patient's been advised about his primary care doctor and his client service administrator to get his diabetes more under control. He has follow-up early next week. His lightheadedness has resolved. He has also been given a referral to cardiology if his symptoms return or continue. Unlikely for this to be an arrhythmia or structural heart disease but that remains on the differential as well. Critical Care Critical Care Time Critical Care Time: Yes Attestation: On , the high probability of a clinically significant, sudden or life threatening deterioration of the following system(s) required my full and direct attention, intervention and personal management. The time I documented below is in addition to time spent performing reported procedures but includes the following listed in this critical care notation. Total Time Total Critical Care Time: 35
[2025-05-05] MEDS: ONDANSETRON 4MG/2ML VIAL 4 MG IV (08:41)
[2025-05-05] MEDS: LACTATED RINGERS 1000ML 1,000 ML 999 ML IV ×2 (08:41→10:37)
[2025-05-05 08:51] LABS: Microscopic, Urine URINE MICROSCOPIC (MICROSCOPIC)
[2025-05-05 08:52] LABS: Albumin Level 4.7 g/dl (3.5-5.0); Chloride 99 mmol/L (98-107)
[2025-05-05 08:53] LABS: Potassium 4.8 mmoL/L (3.5-5.1); Sodium 133 mmol/L (136-145)
[2025-05-05 08:55] LABS: Appearance,Urine CLEAR (Clear); Bilirubin,Urine Negative (Negative); Blood, Urine Negative (Negative); Color,Urine YELLOW (Yellow); Glucose,Urine (UA) 3+ (Negative); Ketones,Urine Negative (Negative); Leukocyte Esterase,Urine TRACE (Negative); Nitrate,Urine Negative (Negative); Protein,Urine Negative (Negative); Urobilinogen,Urine 0.2 EU/dl (0.2)
[2025-05-05 08:55] LABS: Alanine Aminotransferase 43 U/L (12-78); Albumin/Globulin Ratio 1.4 (1.1-1.8); Alkaline Phosphatase 87 U/L (38-126); Anion Gap 10.8 mEq/L (5-15); Aspartate Amino Transferase 28 U/L (17-59); Bilirubin,Total 0.6 mg/dl (0.2-1.3); Blood Urea Nitrogen 16 mg/dl (9-20); Carbon Dioxide 28 mmol/L (22.0-30.0); Creatinine Clearance Estimated 170 mL/min (50-200); Estimated Glomerular Filt Rate 128 ml/min (>60); GFR (African American) 155 ML/MIN (>60); Globulin 3.4 g/dL (1.3-3.2); Total Protein,Serum 8.1 g/dl (6.3-8.2)
[2025-05-05 08:56] LABS: Calcium 9.4 mg/dl (8.4-10.2)
[2025-05-05 09:10] LABS: Troponin I < 0.01 ng/ml (0.00-0.034)
[2025-05-05 09:11] LABS: Glucose 443 mg/dl (74-100)
[2025-05-05 09:13] LABS: Bacteria,Urine Trace /lpf
[2025-05-05 09:15] LABS: D-Dimer 0.39 ug/mL (0.0-0.5)
[2025-05-05 09:25] LABS: Magnesium 1.5 mg/dl (1.6-2.3); Phosphorous 3.4 mg/dl (2.5-4.5)
[2025-05-05 09:27] LABS: Thyroid Stimulating Hormone 2.97 uIU/mL (0.465-4.68)
[2025-05-05 09:30] LABS: Amphetamine/Metha Screen,Urine Negative ng/ml (<1000); Benzodiazepines Screen,Urine Negative ng/ml (<200)
[2025-05-05 09:31] LABS: Barbiturates Screen,Urine Negative ng/ml (<200)
[2025-05-05 09:32] LABS: Cannabinoid Screen,Urine Negative ng/ml (<50); Cocaine Screen,Urine Negative ng/ml (<300)
[2025-05-05 09:33] LABS: Methadone Screen,Urine Negative ng/ml (<300)
[2025-05-05 09:34] LABS: Opiate Screen,Urine Negative ng/ml (<300)
[2025-05-05 09:35] LABS: Phencyclidine Screen,Urine Negative ng/ml (<25)
[2025-05-05] MEDS: MAGNESIUM SULFATE IN WATER 2 GM/50 ML PIGGYBACK IV (09:36)
[2025-05-05 09:40] LABS: NT Pro Brain Natriuretic Pep. 38.6 pg/mL (0-125)
[2025-05-05 10:01] LABS: Hemoglobin A1C 9.7 % (4.0-6.0)
[2025-05-05 10:13] LABS: HIV Combo NEGATIVE (Negative)
[2025-05-05 10:21] LABS: Hepatitis C Ab Qual. W/ RFX NEGATIVE (Negative)
--- NOTE | 2025-05-05 10:36 | PC.NURSE ---
pt reports feeling some improvement after fluid administration. spoke with MD. new orders received.
== END 2025-05-05 11:32 | disposition home or self-care (01) ==
PROVIDERS: Emergency Provider Student in an Organized Health Care Education/Training Program; PCP Nurse Practitioner Family
DX: E86.0 Dehydration (principal); E11.65 Type 2 diabetes mellitus with hyperglycemia; R00.1 Bradycardia, unspecified; E83.42 Hypomagnesemia; R42 Dizziness and giddiness; F17.210 Nicotine dependence, cigarettes, uncomplicated
CPT/HCPCS: 71045; 80053; 80074; 80307; 81001; 82803; 83036; 83735; 83880; 84100; 84443; 84484; 85025; 85378; 87389; 93005; 96361; 96365; 96375; 99285; J2405; J3475; J7120

== ENCOUNTER 2025-05-13 09:23 | Emergency (ER) | payer OTHER, SELFPAY ==
[2025-05-13] VITALS (7 sets, daily range): BP systolic 174–195; BP diastolic 111–122; PULSE 93–105; RESP 17–24; TEMP 36.6–36.8; O2SAT 99–100; BMI 34.3
--- NOTE | 2025-05-13 09:35 | XR_ITS ---
FINAL REPORT CLINICAL HISTORY: chest tightness COMPARISON: 05/05/2025 FINDINGS: No acute pulmonary opacity is present. There is no evidence of effusion or pneumothorax. Mediastinum is unremarkable. Heart size is normal. IMPRESSION: No acute abnormality. Reviewed, Interpreted and Dictated by Rick Rdz MD Transcribed by Quita Queen Authenticated and [facility]
--- NOTE | 2025-05-13 09:39 | ECG_ITS ---
APPROVED REPORT Exam: Resting ECG HR:98 bpm ECG Measurements Heart Rate 98 AXES TN 156 P 61 QRSd 100 QRS 86 QT 338 T 59 QTc 393 Conclusion SINUS RHYTHM NORMAL ECG UNCONFIRMED REPORT Electronically signed by : MERCEDEZ RAMOS, 05/14/2025 06:35:48
[2025-05-13 09:41] LABS: Basophils % 0.3 % (0.1-2.0); Eosinophils # 0.2 Kmm3 (0.0-0.4); Eosinophils % 2.5 % (0.1-12.0); Hematocrit 41.2 % (42.0-52.0); Hemoglobin 14.1 g/dL (14.1-18.0); Immature Granulocytes # 0.03 10^3uL; Immature Granulocytes % 0.5 %; Lymphocytes # 1.7 K/mm3 (0.7-4.5); Lymphocytes % 26.8 % (10-50); Mean Corpuscular HGB Conc 34.2 g/dL (31.8-35.4); Mean Corpuscular Hemoglobin 27.8 pg (27.0-31.2); Mean Corpuscular Volume 81.3 fl (80-94); Mean Platelet Volume 8.8 fl (7.4-10.4); Monocytes # 0.5 K/mm3 (0.1-1.0); Monocytes % 7.2 % (1.7-9.3); Neutrophils % 62.7 % (37.0-80.0); Nucleated Red Blood Cells # 0 10^3/uL; Nucleated Red Blood Cells % 0 %; Platelet Count 252 K/mm3 (142-424); Red Blood Count 5.07 M/mm3 (4.60-6.20); Red Cell Distribution Width 12.3 % (11.5-17.5); Red Cell Distribution Width-SD 35.8 fL; White Blood Count 6.4 K/mm3 (4.8-10.8)
--- NOTE | 2025-05-13 09:42 | PC.NURSE ---
Dr Raya asked for Dr Rodrigo Jewell to paged to call about this pt.
--- NOTE | 2025-05-13 09:42 | HMH.EDGENADL ---
Discharge Plan Disposition Patient Disposition: Home, Self-Care Prescriptions Prescriptions: New telmisartan 20 mg tablet 20 mg PO DAILY Qty: 14 0RF No Action insulin glargine [Lantus U-100 Insulin] 100 unit/mL solution 10 unit SQ BID 30 Days Qty: 6 0RF metformin 1,000 mg tablet 1,000 mg PO BID Qty: 60 0RF insulin glargine [Lantus Solostar U-100 Insulin] 100 unit/mL (3 mL) insulin pen 10 unit SQ BID Qty: 30 0RF Referrals Follow up/Referrals: Provider,Referral, MD [Primary Care Provider, Medical] - See instructions Activity Restrictions/Add. Instructions Additional Instructions/Restrictions: At this time it was felt you are safe to be discharged home. If new or worsening symptoms please do not hesitate to return the emergency department. I called and spoke with Dr. Rodrigo Jewell and we agree that we should start you on a blood pressure medicine which I have prescribed for you. Please call and schedule an appointment with him for next week as soon as you are able. Please take it as prescribed until you follow-up with him to see if any adjustments need to be made. Clinical Impressions Clinical Impression: Dizziness, Hyperglycemia, HTN (hypertension), Chest tightness Print Language Print Language: Sami Discharge ED Provider: Silvestre Raya General Adult HPI General Chief complaint: Dizziness Stated complaint: high BP/blood sugar lightheaded dizzy Time Seen by Provider: 05/13/25 09:25 Mode of Arrival: Ambulatory Source of Information: Patient Description of Symptoms (Recalled from ER Triage Doc. by RN): pt presents to ED with c/o lightheadedness, dizziness, shortness of air, chest tightness, feeling spacey. pt reports symptoms began approx 1-2 hours ago. pt does work at [employer] [address] glucose [address] History of Present Illness HPI narrative: Patient is a 35-year-old male with past medical history of insulin-dependent diabetes who presents emergency department for evaluation of lightheadedness and chest tightness. He states he has been dealing with the symptoms ever since he moved to [place]. He has been compliant with his diabetes medications as has noticed that his blood pressure has been high at multiple reasons causing to become concerned presented for continued valuation. No other acute complaints at this time. Please note that above description of symptoms, in this electronic medical record under categorization of recalled from ER triage doctor by RN are reflective of an initial nursing assessment, however, is not reflective of my full history and physical exam that was personally taken and clarified. Consequentially, this preceding description of symptoms, which may include the patient's categorized chief complaint in the EMR, do not reflect my personal clinical impression, and the ultimate description of history of present illness and patient stated complaints should be deferred to this section of the note. Unless stated otherwise or congruent with this section of the note, additional signs, symptoms, or incongruence should be interpreted as inaccurate with my clinical impression. Related Data Previous Rx's ?Medication ?Instructions ?Recorded insulin glargine 100 unit/mL (3 10 unit (0.1 mL) SQ BID #30 mL 02/02/25 mL) subcutaneous pen (Lantus Solostar U-100 Insulin) metformin 1,000 mg tablet 1,000 mg PO BID #60 tabs 02/02/25 insulin glargine 100 unit/mL 10 unit (0.1 mL) SQ BID 30 days #6 04/24/25 subcutaneous solution (Lantus mL U-100 Insulin) telmisartan 20 mg tablet 20 mg PO DAILY High blood pressure 05/13/25 #14 tabs Allergies Allergy/AdvReac Type Severity Reaction Status Date / Time No Known Allergies Allergy Verified 02/02/25 06:30 [facility] Disclaimer: The information contained in this section may have been updated after the patient was seen, as this information can be updated by other users. Medical History (Updated 05/13/25 @ 09:47 by Silvestre Raya MD) Insulin dependent diabetes mellitus Social History (Updated 02/02/25 @ 07:06 by Chad Steward MD) Smoking Status: Current every day smoker alcohol intake: current current occupational status: employed Travel in the last 8 weeks?: None Have you lived/traveled outside US in past 30 days?: No Contact w/someone who lives/traveled outside US past 30 days?: No Exposure to someone with infectious disease in past 14 days?: No Do you have a fever (greater than 100.4 F or 38 C)?: No Have you tested positive for COVID-19?: No Exposed to someone with COVID-19 in past 14 days?: No Do you have a sore throat?: No Do you have a cough?: No Do you have any weakness?: No Do you have any diarrhea?: No Are you experiencing any unusual bleeding?: No Do you have any muscle aches/pain?: No Do you have any abdominal pain?: No Are you experiencing loss of taste or smell?: No ROS Obtained: Yes Systems reviewed as appropriate & no additional complaints except as documented Physical Exam General General appearance: alert and in no apparent distress Head Head exam: atraumatic and normocephalic Eye Eye exam: Present PERRL and EOMI ENT ENT exam: Present mucous membranes moist Neck Neck exam: Present normal inspection Chest Chest inspection: Present normal inspection and symmetric chest wall rise Respiratory Respiratory exam: Present normal lung sounds bilaterally; Absent respiratory distress, wheezes or stridor Cardiovascular Cardiovascular exam: Present regular rate and normal rhythm Abdominal Exam Abdominal exam: Present soft; Absent tenderness Extremities Exam Extremities exam: Present normal inspection Neurological Exam Neurological exam: Present alert and CN II-XII intact Psychiatric Psychiatric exam: Present normal affect Skin Skin exam: Present warm and dry Medical Decision Making Medical Records Screening: Per USPSTF and CDC recommendations, given the prevalence of disease in our region, it is our hospital?s policy to screen for HIV and viral Hepatitis for all patients aged 18 and over and those with ongoing risk factors. David Inquiry Pt receiving controlled substance: No Vital Signs: 05/13/25 09:31 05/13/25 09:53 05/13/25 10:00 Temperature 98.3 F Temperature Source Oral Pulse Rate 93 H 93 H Pulse Rate [Left Radial] 105 H Respiratory Rate 19 Blood Pressure 184/112 H 189/117 H Blood Pressure [Right Arm] 188/118 H Blood Pressure Mean [Right Arm] 141 02 Sat by Pulse Oximetry 99 100 99 Oxygen Delivery Method Room Air Room Air Room Air Lab Data Lab Results 05/13/25 09:32: WBC 6.4, RBC 5.07, Hgb 14.1, Hct 41.2 L, MCV 81.3, MCH 27.8, MCHC 34.2, RDW 12.3, Plt Count 252, MPV 8.8, Neut % (Auto) 62.7, Lymph % (Auto) 26.8, [place] % (Auto) 7.2, Eos % (Auto) 2.5, Baso % (Auto) 0.3, Neut # (Auto) 4.0, Lymph # (Auto) 1.7, [place] # (Auto) 0.5, Eos # (Auto) 0.2, Baso # (Auto) 0.0, D-Dimer 0.36, Sodium 137, Potassium 3.9, Chloride 98, Carbon Dioxide 28, Anion Gap 14.9, BUN 9, Creatinine 0.60 L, Estimated Creat Clear 220, Estimated GFR 153, Est GFR ( Amer) 186, Glucose 189 H, Calcium 9.4, Magnesium 1.8, Total Bilirubin 0.5, AST 40, ALT 37, Alkaline Phosphatase 89, Troponin I < 0.01, Total Protein 7.9, Albumin 4.5, Globulin 3.4 H, Albumin/Globulin Ratio 1.3 05/13/25 09:32 05/13/25 09:32 Orders (Tests/Meds): ED MEDICATIONS Generic Name Dose Route Start Last Admin Trade Name Freq PRN Reason Stop Dose Admin Lactated Ringer's 1,000 mls @ 999 mls/hr 05/13/25 09:41 05/13/25 09:48 Lactated Ringer's 1000 Ml Bag IV 05/13/25 10:41 999 mls/hr .Q1H1M ONE Administration ORDERS Category Date Time Status CXR --portable [XR chest portable] Stat Exams 05/13/25 09:35 Taken CBC w/Auto Diff [Complete Blood Count Auto Diff] Stat Lab 05/13/25 09:32 Completed CMP [Comprehensive Metabolic Panel] Stat Lab 05/13/25 09:32 Completed D-Dimer Stat Lab 05/13/25 09:32 Completed MAG [Magnesium] Stat Lab 05/13/25 09:32 Completed Trop I [Troponin I] Stat Lab 05/13/25 09:32 Completed Troponin I Q3H Lab 05/13/25 12:45 Ordered Troponin I Q3H Lab 05/13/25 15:45 Ordered ECG Data Tracing #1: Independently interpreted by me rate is 98, rhythm is regular, no ST elevation in anatomical contiguous leads, QTc 393. Medical Decision Narrative: Patient is a 35-year-old male with past medical history of insulin-dependent diabetes who presents emergency department for evaluation of concern for high blood sugar as well as multiple elevated blood pressure readings. Patient is hemodynamically stable nontoxic-appearing upon arrival, afebrile. He also has chest tightness. I doubt that patient has DKA based on his fingerstick of just above 190 however workable be conducted in totality for his complaints with hematologic labs chest x-ray D-dimer as I cannot apply PERC criteria with chest tightness and heart rate of 105. Initial interventions include volume resuscitation. His systolic is elevated but not to the point where it would emergently be needed to brought down with IV antihypertensives at this time. Initial workup reviewed by me, hematologic labs are nonactionable no significant leukocytosis no BRENDAN or critical electrolyte abnormality low risk aortic dissection and pulmonary embolism ruled out by D-dimer, initial troponin undetectably low. Given that patient has had the symptoms previously and they are ongoing as well as his lack of cardiovascular risk factors and age with the exception of hypertension single troponin is appropriate. I discussed the case with Dr. Jewell regarding outpatient management and it is reasonable for patient to start on 20 mg of telmisartan which will be initiated by me and patient will follow-up with Dr. Jewell on an outpatient basis to see how this is working for him. [place] Clerk disclaimer Much of this encounter note is an electronic dobby loom weaver spoken language to printed text. Electronic dobby loom weaver of the spoken language may permit errors. Although I have reviewed the note, some errors may still exist. Critical Care Critical Care Time Critical Care Time: No
[2025-05-13 09:48] LABS: Albumin Level 4.5 g/dl (3.5-5.0); Chloride 98 mmol/L (98-107); Potassium 3.9 mmoL/L (3.5-5.1); Sodium 137 mmol/L (136-145)
[2025-05-13] MEDS: LACTATED RINGERS 1000ML 1,000 ML 999 ML IV (09:48)
[2025-05-13 09:51] LABS: Alanine Aminotransferase 37 U/L (12-78); Albumin/Globulin Ratio 1.3 (1.1-1.8); Alkaline Phosphatase 89 U/L (38-126); Anion Gap 14.9 mEq/L (5-15); Aspartate Amino Transferase 40 U/L (17-59); Bilirubin,Total 0.5 mg/dl (0.2-1.3); Blood Urea Nitrogen 9 mg/dl (9-20); Calcium 9.4 mg/dl (8.4-10.2); Carbon Dioxide 28 mmol/L (22.0-30.0); Creatinine Clearance Estimated 220 mL/min (50-200); Estimated Glomerular Filt Rate 153 ml/min (>60); GFR (African American) 186 ML/MIN (>60); Globulin 3.4 g/dL (1.3-3.2); Glucose 189 mg/dl (74-100); Total Protein,Serum 7.9 g/dl (6.3-8.2)
[2025-05-13 09:52] LABS: Magnesium 1.8 mg/dl (1.6-2.3)
[2025-05-13 09:58] LABS: D-Dimer 0.36 ug/mL (0.0-0.5)
[2025-05-13 10:13] LABS: Troponin I < 0.01 ng/ml (0.00-0.034)
--- NOTE | 2025-05-19 11:25 | PC.NURSE ---
[facility] called, asked that because that medication has to stay in original container he cannot dispense only [address] Richardson, ok to dispense 30 tabs.
== END 2025-05-13 10:41 | disposition home or self-care (01) ==
PROVIDERS: Emergency Provider Emergency Medicine
DX: R07.89 Other chest pain (principal); I10 Essential (primary) hypertension; R42 Dizziness and giddiness; R73.9 Hyperglycemia, unspecified; F17.210 Nicotine dependence, cigarettes, uncomplicated
CPT/HCPCS: 71045; 80053; 83735; 84484; 85025; 85378; 93005; 96360; 99285; J7120

== ENCOUNTER 2025-08-02 10:42 | Observation (INO) | payer OTHER, SELFPAY ==
[2025-08-02] VITALS (14 sets, daily range): BP systolic 129–217; BP diastolic 72–127; PULSE 68–118; RESP 16–20; TEMP 36.5–36.9; O2SAT 96–100; BMI 33.3; BMI 28.0
[2025-08-02 10:58] LABS: Hematocrit 45.2 % (42.0-52.0); Hemoglobin 16.0 g/dL (14.1-18.0); Immature Granulocytes % 0.2 %; Mean Corpuscular HGB Conc 35.4 g/dL (31.8-35.4); Mean Corpuscular Hemoglobin 29.6 pg (27.0-31.2); Mean Corpuscular Volume 83.5 fl (80-94); Nucleated Red Blood Cells % 0 %; Platelet Count 297 K/mm3 (142-424); Red Blood Count 5.41 M/mm3 (4.60-6.20); Red Cell Distribution Width-SD 37.7 fL; White Blood Count 5.9 K/mm3 (4.8-10.8)
--- NOTE | 2025-08-02 10:58 | XR_ITS ---
FINAL REPORT CLINICAL HISTORY: nonspecific cough COMPARISON: none FINDINGS: A single frontal view of the chest was obtained. No acute pulmonary opacity is present. There is no evidence of effusion or pneumothorax. Mediastinum is unremarkable. Heart size is normal. IMPRESSION: No acute abnormality. Reviewed, Interpreted and Dictated by Rick Rdz MD Transcribed by Chelsie Jin Authenticated and [facility]
--- NOTE | 2025-08-02 10:58 | ED_ITS ---
<Statement entered by Alessandro Richardson MD - 08/02/25 20:55> I was consulted by the NAV[facility], and we discussed the complexity of the problems being addressed. I approve the treatment and management plan for this patient's care in the emergency department, thus performing a substantive portion of the medical decision making. Alessandro Richardson MD Discharge Plan Disposition Patient Disposition: Admitted Clinical Impressions Clinical Impression: Malignant hypertension Discharge ED Provider: Alessandro Richardson General Adult HPI General Chief complaint: Hyper/Hypoglycemia Stated complaint: Has Type 1 diabetes/feeling off Time Seen by Provider: 08/02/25 10:46 Mode of Arrival: Ambulatory Source of Information: Patient Description of Symptoms (Recalled from ER Triage Doc. by RN): pt is here bc his glucometer broke and he feels off and cant tell if his sugar is high or low, pt is type 1 diabetic that takes 10 units bid, upon triage sugar is 367 History of Present Illness HPI narrative: 35-year-old male presents to the ED today because his glucometer is broken. He says he feels bad and cannot tell if his sugar is high or low. Says that he just took his 10 units of insulin and his sugar here is 367. He says he felt like it was probably elevated. He is having nausea no vomiting or diarrhea. Patient does have a history of hypertension. He says someone in the ER has given him blood pressure medicine in the past but he does not have a primary care physician. He tells us he has been here for 7 months from [place]. He tells us that he needs a primary care. He denies any chest pain or shortness of breath. 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 Related Data Previous Rx's ?Medication ?Instructions ?Recorded insulin glargine 100 unit/mL (3 10 unit (0.1 mL) SQ BI D #30 mL 02/02/25 mL) subcutaneous pen (Lantus Solostar U-100 Insulin) metformin 1,000 mg tablet 1,000 mg PO BID #60 tabs insulin glargine 100 unit/mL 10 unit (0.1 mL) SQ BID 3 0 days #6 04/24/25 subcutaneous solution (Lantus mL U-100 Insulin) telmisartan 20 mg tablet 20 mg PO DAILY High blood pr essure 05/13/25 #14 tabs Allergies Allergy/AdvReac Type Severity Reaction Status Date / Time No Known Allergies Allergy Verified 02/02/25 06:30 [facility] Disclaimer: The information contained in this section may have been updated after the patient was seen, as this information can be updated by other users. Medical History (Updated 08/02/25 @ 16:23 by Sha Nava RN) Insulin dependent diabetes mellitus Social History (Updated 02/02/25 @ 07:06 by Chad Steward MD) Smoking Status: Current every day smoker alcohol intake: current current occupational status: employed Travel in the last 8 weeks?: None Have you lived/traveled outside US in past 30 days?: No Contact w/someone who lives/traveled outside US past 30 days?: No Exposure to someone with infectious disease in past 14 days?: No Do you have a fever (greater than 100.4 F or 38 C)?: No Have you tested positive for COVID-19?: No Exposed to someone with COVID-19 in past 14 days?: No Do you have a sore throat?: No Do you have a cough?: No Do you have any weakness?: No Do you have any diarrhea?: No Are you experiencing any unusual bleeding?: No Do you have any muscle aches/pain?: No Do you have any abdominal pain?: No Are you experiencing loss of taste or smell?: No ROS Obtained: Yes Systems reviewed as appropriate & no additional complaints except as documented Constitutional Constitutional: Reports as per HPI Physical Exam General General appearance: alert and in no apparent distress Head Head exam: normocephalic Eye Eye exam: Present PERRL and EOMI ENT ENT exam: Present mucous membranes moist Neck Neck exam: Present full ROM and trachea midline Respiratory Respiratory exam: Present normal lung sounds bilaterally Cardiovascular Cardiovascular exam: Present normal rhythm, tachycardia, normal heart sounds, +S1 and +S2 Extremities Exam Extremities exam: Present normal inspection, full ROM and normal capillary refill Neurological Exam Neurological exam: Present alert, oriented X3 and normal gait Skin Skin exam: Present warm, dry and intact Medical Decision Making Medical Records Screening: Per USPSTF and CDC recommendations, given the prevalence of disease in our region, it is our hospital?s policy to screen for HIV and viral Hepatitis for all patients aged 18 and over and those with ongoing risk factors. David Inquiry Pt receiving controlled substance: No David was queried for this patient: No Vital Signs: 08/02/25 10:52 08/02/25 11:00 08/02/25 11:30 Temperature 98.1 F Temperature Source Oral Pulse Rate 68 94 H Pulse Rate [Left Radial] 118 H Respiratory Rate 20 Blood Pressure 176/107 H 181/106 H Blood Pressure [Right Arm] 217/123 H Blood Pressure Mean Blood Pressure Mean [Right Arm] 154 02 Sat by Pulse Oximetry 99 100 100 Oxygen Delivery Method Room Air 08/02/25 12:01 08/02/25 12:31 08/02/25 13:15 Temperature Temperature Source Pulse Rate 89 82 86 Pulse Rate [Left Radial] Respiratory Rate Blood Pressure 188/111 H 179/116 H 176/114 H Blood Pressure [Right Arm] Blood Pressure Mean 133 135 Blood Pressure Mean [Right Arm] 02 Sat by Pulse Oximetry 99 100 100 Oxygen Delivery Method 08/02/25 13:57 08/02/25 14:00 08/02/25 14:30 Temperature Temperature Source Pulse Rate 87 84 84 Pulse Rate [Left Radial] Respiratory Rate Blood Pressure 186/123 H 197/126 H 177/127 H Blood Pressure [Right Arm] Blood Pressure Mean Blood Pressure Mean [Right Arm] 02 Sat by Pulse Oximetry 99 99 98 Oxygen Delivery Method 08/02/25 15:19 08/02/25 15:30 08/02/25 16:00 Temperature Temperature Source Pulse Rate 94 H Pulse Rate [Left Radial] Respiratory Rate Blood Pressure 156/99 H 163/115 H 152/84 H Blood Pressure [Right Arm] Blood Pressure Mean 131 106 Blood Pressure Mean [Right Arm] 02 Sat by Pulse Oximetry 98 Oxygen Delivery Method 08/02/25 16:04 Temperature 98.4 F Temperature Source Pulse Rate 70 Pulse Rate [Left Radial] Respiratory Rate 20 Blood Pressure 152/86 H Blood Pressure [Right Arm] Blood Pressure Mean Blood Pressure Mean [Right Arm] 02 Sat by Pulse Oximetry Oxygen Delivery Method Room Air Lab Data Lab Results 08/02/25 10:45: POC Glucose 367 H* 08/02/25 10:49: WBC 5.9, RBC 5.41, Hgb 16.0, Hct 45.2, MCV 83.5, MCH 29.6, MCHC 35.4, RDW 12.5, Plt Count 297, MPV 8.6, Neut % (Auto) 64.1, Lymph % (Auto) 25.7, [place] % (Auto) 6.8, Eos % (Auto) 2.7, Baso % (Auto) 0.5, Neut # (Auto) 3.8, Lymph # (Auto) 1.5, [place] # (Auto) 0.4, Eos # (Auto) 0.2, Baso # (Auto) 0.0, Sodium 136, Potassium 4.7, Chloride 99, Carbon Dioxide 28, Anion Gap 13.7, BUN 11, C reatinine 0.60 L, Estimated Creat Clear 220, Estimated GFR 153, Est GFR ( Amer) 186, Glucose 363 H, Hemoglobin A1c 9.8 H, Calcium 9.6, Magnesium 1.5 L, Total Bilirubin 0.6, AST 31, ALT 35, Alkaline Phosphatase 81, Total Protein 8.3 H, Albumin 4.7, Globulin 3.6 H, Albumin/Globulin Ratio 1.3, Lipase 76, Acetone Level None detected 08/02/25 10:50: VBG pH 7.36, VBG pCO2 50.6, VBG pO2 35.6, VBG HCO3 27.6, VBG Total CO2 29.2 H, VBG O2 Saturation 68.6, VBG Base Excess 2.1, VBG Lactic Acid 1.9 08/02/25 12:00: Urine Color Yellow, Urine Appearance Clear, Urine pH 6.0, Ur Specific [place] 1.011, Urine Protein Negative, Urine Glucose (UA) 3+, Urine Ketones Negative, Urine Blood Negative, Urine Nitrate Negative, Urine Bilirubin Negative, Urine Urobilinogen 0.2, Ur Leukocyte Esterase Negative, Urine RBC None, Urine WBC Occasional, Ur Squamous Epith Cells None, Urine Bacteria None, Urine Sperm Occ 08/02/25 13:14: POC Glucose 268 H 08/02/25 10:49 08/02/25 10:49 Orders (Tests/Meds): ED MEDICATIONS Generic Name Dose Route Start Last Admin Trade Name Freq PRN Reason Stop Dose Admin Acetaminophen 650 mg 08/02/25 15:48 Acetaminophen 325mg Tab PO 09/01/25 15:47 Q4HP PRN Fever or Mild Pain (1-3) Insulin Glargine 15 unit 08/02/25 21:00 Insulin Glargine 100 Units/Ml 3ml Flexpen SUBCUT 09/01/25 20:59 BID [facility] Insulin Human Lispro 0 unit 08/02/25 16:30 Humalog 100 Units/Ml 10ml Vial (Ssi) SUBCUT 09/01/25 16:29 ACHS [facility] Protocol Irbesartan 37.5 mg 08/02/25 21:00 Irbesartan 75mg Tablet PO 09/01/25 20:59 HS [facility] Nicotine 21 mg 08/02/25 15:48 Nicotine 21mg/24hr Patch TD 09/01/25 15:47 DAILYP PRN Nicotine Cravings Discontinued Medications Generic Name Dose Route Start Last Admin Trade Name Freq PRN Reason Stop Dose Admin Hydralazine HCl 10 mg 08/02/25 14:18 08/02/25 14:46 Hydralazine 20mg/Ml Vial IV 08/02/25 14:19 10 mg ONCE ONE Administration Sodium Chloride 1,000 mls @ 999 mls/hr 08/02/25 10:50 08/02/25 12:49 Sod Chlor 0.9% 1000ml Bag IV 08/02/25 11:50 Infused .Q1H1M ONE Infusion Sodium Chloride 500 mls @ 999 mls/hr 08/02/25 12:38 08/02/25 13:20 Sod Chlor 0.9% 1000ml Bag IV 08/02/25 13:08 Infused .Q31M ONE Infusion Irbesartan 75 mg 08/02/25 12:38 08/02/25 13:11 Irbesartan 75mg Tablet PO 08/02/25 12:39 75 mg ONCE ONE Administration Ketorolac Tromethamine 30 mg 08/02/25 11:44 08/02/25 12:00 Ketorolac 30mg/Ml Vial IV 08/02/25 11:45 30 mg ONCE ONE Administration ORDERS Category Date Time Status CT head/brain wo con Stat Cat Scan 08/02/25 14:00 Completed XR chest portable Stat Exams 08/02/25 10:58 Completed Acetone, Serum (Rapid) Stat Lab 08/02/25 10:49 Completed CBC [Complete Blood Count Auto Diff] Stat Lab 08/02/25 10:49 Completed Complete Blood Count Auto Diff AMLAB Lab 08/03/25 06:00 Ordered Comprehensive Metabolic Panel AMLAB Lab 08/03/25 06:00 Ordered Comprehensive Metabolic Panel Stat Lab 08/02/25 10:49 Completed Glucose,Fasting Stat Lab 08/02/25 12:39 Ordered Hemoglobin A1C Stat Lab 08/02/25 10:49 Completed Lipase Stat Lab 08/02/25 10:49 Completed Magnesium AMLAB Lab 08/03/25 06:00 Ordered Magnesium Stat Lab 08/02/25 10:49 Completed POC Glucose,Bedside Routine Lab 08/02/25 10:45 Completed POC Glucose,Bedside Routine Lab 08/02/25 13:14 Completed Urinalysis and Microscopic Stat Lab 08/02/25 12:00 Completed Venous Blood Gas Stat RT 08/02/25 10:50 Completed Medical Decision Narrative: patient is a 35-year-old male presenting to the emergency department for evaluation of elevated blood sugar. Patient is hemodynamically stable and nontoxic-appearing upon arrival, afebrile. Differential diagnosis includes hyperglycemia. Workup will be conducted with hematologic labs, specific imaging, provocative tests. Initial inventions include crystalloid bolus, analgesics. Initial workup reviewed by me hematologic labs are nonactionable. Blood pressures have been elevated since arrival to the ED. My concern is that his blood pressure has been his issue rather than his blood sugars. Initially patient thought his blood sugars was his problem. Discussed this with . We did obtain a CT scan of his head to rule out any bleed. I did talk to Dr. Wong concerning his hypertension and treatment. Dr. Wong came to the ED to see patient in will admit patient for malignant hypertension. Patient blood pressure after giving hydralazine is 156/99. Patient stable for admission. Critical Care Critical Care Time Critical Care Time: No
[2025-08-02 11:02] LABS: Lactate Venous 1.9 mmol/L (0.4-2.0); VBG HCO3 27.6 mmol/L (23-30); VBG PCO2 50.6 mmol/L (35-51); VBG PH 7.36 mmol/L (7.31-7.41); VBG PO2 35.6 mmol/L (28-40)
[2025-08-02] MEDS: 0.9 % SODIUM CHLORIDE 1000ML 1,000 ML 999 ML IV (11:03)
[2025-08-02 11:19] LABS: Alanine Aminotransferase 35 U/L (12-78); Albumin Level 4.7 g/dl (3.5-5.0); Albumin/Globulin Ratio 1.3 (1.1-1.8); Alkaline Phosphatase 81 U/L (38-126); Anion Gap 13.7 mEq/L (5-15); Aspartate Amino Transferase 31 U/L (17-59); Bilirubin,Total 0.6 mg/dl (0.2-1.3); Blood Urea Nitrogen 11 mg/dl (9-20); Calcium 9.6 mg/dl (8.4-10.2); Carbon Dioxide 28 mmol/L (22.0-30.0); Chloride 99 mmol/L (98-107); Creatinine Clearance Estimated 220 mL/min (50-200); Creatinine,Serum 0.60 mg/dl (0.66-1.25); Estimated Glomerular Filt Rate 153 ml/min (>60); GFR (African American) 186 ML/MIN (>60); Globulin 3.6 g/dL (1.3-3.2); Glucose 363 mg/dl (74-100); Lipase 76 U/L (23-300); Magnesium 1.5 mg/dl (1.6-2.3); Potassium 4.7 mmoL/L (3.5-5.1); Sodium 136 mmol/L (136-145); Total Protein,Serum 8.3 g/dl (6.3-8.2)
[2025-08-02 11:24] LABS: Acetone, Serum (Rapid) None Detected (None Detect)
--- NOTE | 2025-08-02 11:37 | ECG_ITS ---
APPROVED REPORT Exam: Resting ECG HR:94 bpm ECG Measurements Heart Rate 94 AXES ME 189 P 50 QRSd 97 QRS 34 QT 337 T 39 QTc 389 Conclusion SINUS RHYTHM INDETERMINATE AXIS INCOMPLETE RIGHT BUNDLE BRANCH BLOCK [90+ ms QRS DURATION, TERMINAL R IN V1/V2, 40+ ms S IN I/aVL/V4/V5/V6] BORDERLINE ECG UNCONFIRMED REPORT Normal sinus rhythm. No ST elevation or depression. QTc of 389 Electronically signed by : MIR WEBSTER, 08/02/2025 16:03:20
[2025-08-02] MEDS: KETOROLAC 30MG/ML VIAL 30 MG IV (12:00)
[2025-08-02 12:02] LABS: POC Glucose,Bedside 367 gm/dL (70-110)
[2025-08-02 12:07] LABS: Microscopic, Urine URINE MICROSCOPIC (MICROSCOPIC)
[2025-08-02 12:08] LABS: Bilirubin,Urine Negative (Negative); Color,Urine YELLOW (Yellow); Glucose,Urine (UA) 3+ (Negative); Ketones,Urine Negative (Negative); Leukocyte Esterase,Urine Negative (Negative); PH,Urine 6.0 (5.0-8.5); Protein,Urine Negative (Negative); Urobilinogen,Urine 0.2 EU/dl (0.2)
[2025-08-02 12:47] LABS: Specific Gravity, Urine 1.011 (1.005-1.030)
[2025-08-02] MEDS: 0.9 % SODIUM CHLORIDE 1000ML 500 ML 999 ML IV (12:49)
[2025-08-02 12:52] LABS: Sperm,Urine OCC /lpf; WBC,Urine Occasional #/hpf (0-3)
[2025-08-02] MEDS: IRBESARTAN 75MG TABLET 75 MG PO (13:11)
[2025-08-02 13:13] LABS: Hemoglobin A1C 9.8 % (4.0-6.0)
[2025-08-02 13:22] LABS: POC Glucose,Bedside 268 gm/dL (70-110)
--- NOTE | 2025-08-02 14:00 | CT_ITS ---
FINAL REPORT TECHNIQUE: Noncontrast exam This study was performed with techniques to keep radiation doses as low as reasonably achievable, (ALARA). Individualized dose reduction techniques using automated exposure control or adjustment of mA and/or kV according to the patient''s size were employed. CLINICAL HISTORY: headache COMPARISON: None FINDINGS: No abnormal density is seen. Ventricles are normal. There is no hemorrhage. No mass effect is seen. Soft tissue nodule in the left occipital scalp measures up to 8 mm. This probably represents mildly enlarged lymph node. Bone windows show no evidence of fracture. There are 2 lucent lesions involving the bilateral parietal occipital bones. On the left side this measures up to 14 mm on image 36 and on the right measures up to 12 mm. IMPRESSION: No intracranial abnormality. Nonspecific lucent lesions in the parietal occipital bones. Bone scan may be considered or MRI without and with contrast. Reviewed, Interpreted and Dictated by Rick dRz MD Transcribed by Chelsie Jin Authenticated and [facility]
[2025-08-02] MEDS: HYDRALAZINE 20MG/ML VIAL 10 MG IV (14:46)
--- NOTE | 2025-08-02 15:30 | PC.NURSE ---
hospitalist at bedside
--- NOTE | 2025-08-02 15:55 | PC.NURSE ---
called [facility] sup for bed assignment
--- NOTE | 2025-08-02 16:03 | PC.NURSE ---
called report to muna german on 2nd floor
[2025-08-02] MEDS: ACETAMINOPHEN 325MG TAB 650 MG PO ×2 (16:57→21:01)
[2025-08-02 17:06] LABS: POC Glucose,Bedside 387 gm/dL (70-110)
--- NOTE | 2025-08-02 17:08 | PC.NURSE ---
arrived to floor at 1613 from ED
[2025-08-02] MEDS: humaLOG 100 UNITS/ML 10ML VIAL (SSI) SUBCUT ×2 (17:13→20:56)
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
[2025-08-02 20:12] LABS: POC Glucose,Bedside 168 gm/dL (70-110)
[2025-08-02] MEDS: INSULIN GLARGINE 100 UNITS/ML 3ML FLEXPEN 15 UNIT SUBCUT (20:57)
--- NOTE | 2025-08-03 03:21 | PC.NURSE ---
Pt AOx4. Blood glucose has been more controlled than earlier in the day and BP within normal limits. No acute changes notes. Pt currently resting in bed with eyes closed, respirations even and unlabored. Bed is low, locked, and call light is in reach.
[2025-08-03 04:00] VITALS: BP 166/99; PULSE 88; RESP 16; TEMP 36.5; O2SAT 100; BMI 28.7
[2025-08-03 05:23] LABS: POC Glucose,Bedside 264 gm/dL (70-110)
[2025-08-03] MEDS: humaLOG 100 UNITS/ML 10ML VIAL (SSI) SUBCUT ×2 (05:27→11:24)
[2025-08-03 06:49] LABS: Hematocrit 41.7 % (42.0-52.0); Immature Granulocytes % 0.4 %; Mean Corpuscular HGB Conc 34.3 g/dL (31.8-35.4); Mean Corpuscular Hemoglobin 28.9 pg (27.0-31.2); Mean Corpuscular Volume 84.2 fl (80-94); Nucleated Red Blood Cells % 0 %; Platelet Count 247 K/mm3 (142-424); Red Blood Count 4.95 M/mm3 (4.60-6.20); Red Cell Distribution Width-SD 37.8 fL; White Blood Count 5.0 K/mm3 (4.8-10.8)
[2025-08-03 06:52] LABS: Hemoglobin 14.7 g/dL (14.1-18.0)
[2025-08-03 07:04] LABS: Alanine Aminotransferase 27 U/L (12-78); Albumin Level 3.9 g/dl (3.5-5.0); Albumin/Globulin Ratio 1.3 (1.1-1.8); Alkaline Phosphatase 58 U/L (38-126); Anion Gap 9.7 mEq/L (5-15); Aspartate Amino Transferase 25 U/L (17-59); Bilirubin,Total 0.4 mg/dl (0.2-1.3); Blood Urea Nitrogen 10 mg/dl (9-20); Calcium 8.8 mg/dl (8.4-10.2); Carbon Dioxide 26 mmol/L (22.0-30.0); Chloride 104 mmol/L (98-107); Creatinine Clearance Estimated 242 mL/min (50-200); Creatinine,Serum 0.50 mg/dl (0.66-1.25); Estimated Glomerular Filt Rate 189 ml/min (>60); GFR (African American) 229 ML/MIN (>60); Globulin 3.0 g/dL (1.3-3.2); Glucose 189 mg/dl (74-100); Magnesium 1.7 mg/dl (1.6-2.3); Potassium 3.7 mmoL/L (3.5-5.1); Sodium 136 mmol/L (136-145); Total Protein,Serum 6.9 g/dl (6.3-8.2)
--- NOTE | 2025-08-03 07:28 | EXP.DC.SUM ---
General Admission date:: 08/02/25 Discharge date: 08/03/25 HPI HPI HPI: Mr. Avelar is a 35-year-old male with history of diabetes and hypertension who recently moved to the area from [place]. He has not established with a primary care. Is taking twice a day insulin. Presented to the ER because his glucometer broke. Said that he was waiting for his ride for work this morning and began to feel dizzy and have blurry vision. Denies nausea or vomiting. Does have a history of hypertension but is not on any medications at this time. Thought his blood sugar was off and so he came to the ER for evaluation. Found to have severely elevated blood pressure with systolics of 217. Blood sugar elevated at 367. Has not established with a primary care since moving to the region from [place]. Denies chest pain, shortness of breath, confusion. Initiated on irbesartan and hydralazine in the ER. Feeling somewhat better after IV fluids and improvement in blood pressure. Medicine consulted for admission and further management due to need to establish with endocrinology and for improved blood pressure control due to his malignant hypertension. On evaluation, patient stable on room air. Feeling a little bit better since improvement in his blood pressure. Systolic blood pressure 160-170 on my evaluation. Agreeable to admission for medical optimization Hospital Course Hospital Course Hospital Course: 35-year-old male with insulin-dependent diabetes who presented with blurry vision. Found to have malignant hypertension on arrival to the ER along with hyperglycemia. Workup in the ER concerning for systolic blood pressure of approximately 220. Glucose in the 300s. Initiated on blood pressure regimen with hydralazine. Blood pressure shown significant improvement with systolics into the 160s but still having symptoms and diabetes appears uncontrolled. Discussed case with ER provider, request admission for further management of hypertension and poorly controlled diabetes. I agreed to admit for further care. Endocrine consulted for the morning. Having some improvement in blood pressure. Tolerating insulin regimen. Endocrine evaluated and will have close follow-up. Recommends medication adjustments as follows. Problems addressed as follows: Malignant hypertension - Initial blood pressure severely elevated With systolic of 217. Showed some improvement after irbesartan to 170s and 180s. Will improve by morning of discharge to systolics of 150s-160s. Patient feeling better with resolution of blurry vision. Denies any headache or chest pain. After discussion with endocrinology, will hold on MARIAH/ARB at this time until patient has further evaluation of RAAS system as an outpatient. Transition to amlodipine 5 mg daily and carvedilol 6.25 mg twice daily. Kidney function remained normal during admission. BUN 10, creatinine 0.5. Hyperglycemia Poorly controlled insulin-dependent diabetes - Glucose elevated at 360-380 on presentation to the ER. Patient states this is better than his glucose generally runs which was up around 500 until he initiated twice daily long-acting insulin. Continued insulin glargine twice daily. Was evaluated by endocrine. Recommend transitioning to glargine 25 units nightly and 5 units of short acting with meals 3 times a day. Will follow-up next week for further evaluation of etiology of insulin.Pending labs a discharge include aldosterone, genoveva 65, IA 2 autoantibody, insulin autoantibody, renin activity, and zinc transporter 8 antibody. Will further consider treatment with continuous glucose monitor and insulin pump as an outpatient. -A1c elevated at 9.8 Hypomagnesemia: Magnesium 1.5, received 1 dose IV in the ER. Repeat magnesium better at 1.7. Total time spent on discharge 35 minutes in counseling, documentation, chart review, and direct care with patient. Exam Data for Last 24 hours Vital signs and Labs for Last 24 Hours: Temp Pulse Resp BP Pulse Ox O2 Del Method 97.7 F 88 16 166/99 H 100 Room Air 08/03/25 04:00 08/03/25 04:00 08/03/25 04:00 08/03/25 04:00 08/03/25 04:00 08/03/25 06:36 Laboratory Results - last 24 hr 08/02/25 10:45: POC Glucose 367 H* 08/02/25 10:49: WBC 5.9, RBC 5.41, Hgb 16.0, Hct 45.2, MCV 83.5, MCH 29.6, MCHC 35.4, RDW 12.5, Plt Count 297, MPV 8.6, Neut % (Auto) 64.1, Lymph % (Auto) 25.7, [place] % (Auto) 6.8, Eos % (Auto) 2.7, Baso % (Auto) 0.5, Neut # (Auto) 3.8, Lymph # (Auto) 1.5, [place] # (Auto) 0.4, Eos # (Auto) 0.2, Baso # (Auto) 0.0, Sodium 136, Potassium 4.7, Chloride 99, Carbon Dioxide 28, Anion Gap 13.7, BUN 11, Creatinine 0.60 L, Estimated Creat Clear 220, Estimated GFR 153, Est GFR ( Amer) 186, Glucose 363 H, Hemoglobin A1c 9.8 H, Calcium 9.6, Magnesium 1.5 L, Total Bilirubin 0.6, AST 31, ALT 35, Alkaline Phosphatase 81, Total Protein 8.3 H, Albumin 4.7, Globulin 3.6 H, Albumin/Globulin Ratio 1.3, Lipase 76, Acetone Level None detected 08/02/25 10:50: VBG pH 7.36, VBG pCO2 50.6, VBG pO2 35.6, VBG HCO3 27.6, VBG Total CO2 29.2 H, VBG O2 Saturation 68.6, VBG Base Excess 2.1, VBG Lactic Acid 1.9 08/02/25 12:00: Urine Color Yellow, Urine Appearance Clear, Urine pH 6.0, Ur Specific [place] 1.011, Urine Protein Negative, Urine Glucose (UA) 3+, Urine Ketones Negative, Urine Blood Negative, Urine Nitrate Negative, Urine Bilirubin Negative, Urine Urobilinogen 0.2, Ur Leukocyte Esterase Negative, Urine RBC None, Urine WBC Occasional, Ur Squamous Epith Cells None, Urine Bacteria None, Urine Sperm Occ 08/02/25 13:14: POC Glucose 268 H 08/02/25 16:55: POC Glucose 387 H* 08/02/25 19:55: POC Glucose 168 H 08/03/25 05:16: POC Glucose 264 H 08/03/25 06:29: WBC 5.0, RBC 4.95, Hgb 14.7, Hct 41.7 L, MCV 84.2, MCH 28.9, MCHC 34.3, RDW 12.5, Plt Count 247, MPV 8.8, Neut % (Auto) 61.0, Lymph % (Auto) 27.6, [place] % (Auto) 6.4, Eos % (Auto) 4.2, Baso % (Auto) 0.4, Neut # (Auto) 3.0, Lymph # (Auto) 1.4, [place] # (Auto) 0.3, Eos # (Auto) 0.2, Baso # (Auto) 0.0, Sodium 136, Potassium 3.7 D, Chloride 104, Carbon Dioxide 26, Anion Gap 9.7, BUN 10, Creatinine 0.50 L, Estimated Creat Clear 242, Estimated GFR 189, Est GFR ( Amer) 229 D, Glucose 189 H D, Calcium 8.8, Magnesium 1.7 D, Total Bilirubin 0.4, AST 25, ALT 27, Alkaline Phosphatase 58, Total Protein 6.9, Albumin 3.9 D, Globulin 3.0, Albumin/Globulin Ratio 1.3 I & O for Last 24 hours: Intake & Output 07/31/25 08/01/25 08/02/25 08/03/25 23:59 23:59 23:59 23:59 Intake Total 1920 / 2400 480 / 480 Output Total 0 / 0 Balance 1920 / 2400 480 / 480 Weight 81.25 kg 83.007 kg Constitutional Constitutional: no acute distress *Routine HEENT Exam Head: Present normocephalic Eye: Present EOMI and PERRL ENT: Present mucous membranes moist *Routine Neck Exam Neck: Present supple; Absent lymphadenopathy *Routine Respiratory Exam Respiratory: Present CTA bilaterally *Routine Cardiovascular Exam Cardiovascular: Present RRR *Routine Abdominal Exam Abdominal: Present soft and normoactive bowel sounds; Absent tenderness *Routine Rectal Exam Patient deferred: visual exam *Routine Exam Patient deferred: penile exam *Routine Extremities Exam Extremities: Absent cyanosis, clubbing or edema *Routine Skin Exam Skin: Present warm; Absent rash *Routine Neurological Exam Neurological: Present alert, oriented X3 and moving all extremities; Absent altered mental status Results Data Completed and Pending Labs on day of discharge: Labs from last 24 hours 08/03/25 08/03/25 08/02/25 06:29 05:16 19:55 WBC 5.0 RBC 4.95 Hgb 14.7 Hct 41.7 L MCV 84.2 MCH 28.9 MCHC 34.3 RDW 12.5 Plt Count 247 MPV 8.8 Neut % (Auto) 61.0 Lymph % (Auto) 27.6 [place] % (Auto) 6.4 Eos % (Auto) 4.2 Baso % (Auto) 0.4 Neut # (Auto) 3.0 Lymph # (Auto) 1.4 [place] # (Auto) 0.3 Eos # (Auto) 0.2 Baso # (Auto) 0.0 VBG pH VBG pCO2 VBG pO2 VBG HCO3 VBG Total CO2 VBG O2 Saturation VBG Base Excess VBG Lactic Acid Sodium 136 Potassium 3.7 D Chloride 104 Carbon Dioxide 26 Anion Gap 9.7 BUN 10 Creatinine 0.50 L Estimated Creat Clear 242 Estimated GFR 189 Est GFR ( Amer) 229 D Glucose 189 H D POC Glucose 264 H 168 H Hemoglobin A1c Calcium 8.8 Magnesium 1.7 D Total Bilirubin 0.4 AST 25 ALT 27 Alkaline Phosphatase 58 Total Protein 6.9 Albumin 3.9 D Globulin 3.0 Albumin/Globulin Ratio 1.3 Lipase Urine Color Urine Appearance Urine pH Ur Specific [place] Urine Protein Urine Glucose (UA) Urine Ketones Urine Blood Urine Nitrate Urine Bilirubin Urine Urobilinogen Ur Leukocyte Esterase Urine RBC Urine WBC Ur Squamous Epith Cells Urine Bacteria Urine Sperm Acetone Level 08/02/25 08/02/25 08/02/25 16:55 13:14 12:00 WBC RBC Hgb Hct MCV MCH MCHC RDW Plt Count MPV Neut % (Auto) Lymph % (Auto) [place] % (Auto) Eos % (Auto) Baso % (Auto) Neut # (Auto) Lymph # (Auto) [place] # (Auto) Eos # (Auto) Baso # (Auto) VBG pH VBG pCO2 VBG pO2 VBG HCO3 VBG Total CO2 VBG O2 Saturation VBG Base Excess VBG Lactic Acid Sodium Potassium Chloride Carbon Dioxide Anion Gap BUN Creatinine Estimated Creat Clear Estimated GFR Est GFR ( Amer) Glucose POC Glucose 387 H* 268 H Hemoglobin A1c Calcium Magnesium Total Bilirubin AST ALT Alkaline Phosphatase Total Protein Albumin Globulin Albumin/Globulin Ratio Lipase Urine Color Yellow Urine Appearance Clear Urine pH 6.0 Ur Specific [place] 1.011 Urine Protein Negative Urine Glucose (UA) 3+ Urine Ketones Negative Urine Blood Negative Urine Nitrate Negative Urine Bilirubin Negative Urine Urobilinogen 0.2 Ur Leukocyte Esterase Negative Urine RBC None Urine WBC Occasional Ur Squamous Epith Cells None Urine Bacteria None Urine Sperm Occ Acetone Level 08/02/25 08/02/25 08/02/25 10:50 10:49 10:45 WBC 5.9 RBC 5.41 Hgb 16.0 Hct 45.2 MCV 83.5 MCH 29.6 MCHC 35.4 RDW 12.5 Plt Count 297 MPV 8.6 Neut % (Auto) 64.1 Lymph % (Auto) 25.7 [place] % (Auto) 6.8 Eos % (Auto) 2.7 Baso % (Auto) 0.5 Neut # (Auto) 3.8 Lymph # (Auto) 1.5 [place] # (Auto) 0.4 Eos # (Auto) 0.2 Baso # (Auto) 0.0 VBG pH 7.36 VBG pCO2 50.6 VBG pO2 35.6 VBG HCO3 27.6 VBG Total CO2 29.2 H VBG O2 Saturation 68.6 VBG Base Excess 2.1 VBG Lactic Acid 1.9 Sodium 136 Potassium 4.7 Chloride 99 Carbon Dioxide 28 Anion Gap 13.7 BUN 11 Creatinine 0.60 L Estimated Creat Clear 220 Estimated GFR 153 Est GFR ( Amer) 186 Glucose 363 H POC Glucose 367 H* Hemoglobin A1c 9.8 H Calcium 9.6 Magnesium 1.5 L Total Bilirubin 0.6 AST 31 ALT 35 Alkaline Phosphatase 81 Total Protein 8.3 H Albumin 4.7 Globulin 3.6 H Albumin/Globulin Ratio 1.3 Lipase 76 Urine Color Urine Appearance Urine pH Ur Specific [place] Urine Protein Urine Glucose (UA) Urine Ketones Urine Blood Urine Nitrate Urine Bilirubin Urine Urobilinogen Ur Leukocyte Esterase Urine RBC Urine WBC Ur Squamous Epith Cells Urine Bacteria Urine Sperm Acetone Level None detected DS: Diagnosis Discharge Diagnosis (1) Malignant hypertension: Status: Acute Code(s): I10 - Essential (primary) hypertension (2) Chest tightness: Status: Acute Code(s): R07.89 - Other chest pain (3) Dizziness: Status: Acute Code(s): R42 - Dizziness and giddiness (4) Dehydration: Status: Acute Code(s): E86.0 - Dehydration (5) Hyperglycemia: Status: Acute Code(s): R73.9 - Hyperglycemia, unspecified (6) Insulin dependent diabetes mellitus: Status: Chronic (7) Diabetic neuropathy: Status: Acute Code(s): E11.40 - Type 2 diabetes mellitus with diabetic neuropathy, unspecified Meds Home Medications and Allergies Home Medications ?Medication ?Instructions ?Recorded ?Confirmed ?Type amlodipine 5 mg tablet 5 mg PO DAILY #30 tabs 08/03/25 Rx carvedilol 6.25 mg tablet (Coreg) 6.25 mg PO BID #60 tabs 08/03/25 Rx gabapentin 100 mg capsule 200 mg (2 x 100 mg) PO HS #60 caps 08/03/25 Rx insulin glargine 100 unit/mL (3 25 unit (0.25 mL) SQ HS #15 mL 08/03/25 Rx mL) subcutaneous pen (Lantus Solostar U-100 Insulin) insulin lispro 100 unit/mL 5 unit (0.05 mL) SQ AC 30 days 08/03/25 Rx subcutaneous pen (Humalog KwikPen #4.5 mL (U-100) Insulin) pen needle, diabetic 31 gauge x #100 ea 08/03/25 Rx / New Prescriptions to Start Prescriptions: amlodipine Danny Wong carvedilol [Coreg] Danny Wong gabapentin Danny Wong insulin glargine [Lantus Solostar U-100 Insulin] Danny Wong insulin lispro [Humalog KwikPen Insulin] Danny Wong pen needle, diabetic Danny Wong Allergies Allergy/AdvReac Type Severity Reaction Status Date / Time No Known Allergies Allergy Verified 02/02/25 06:30 Discharge Plan Disposition Patient Disposition: Home, Self-Care Condition: Good Follow up Plan Follow up with: Rodrigo Jewell DO [Staff Physician, Family Practice] - Enter time for follow up La Campos MD [Staff Physician, Endocrinology] - Enter time for follow up Prescriptions/Medication Reconciliation: New insulin glargine [Lantus Solostar U-100 Insulin] 100 unit/mL (3 mL) Insulin Pen 25 unit SQ HS Qty: 15 0RF insulin lispro [Humalog KwikPen Insulin] 100 unit/mL insulin pen 5 unit SQ AC 30 Days Qty: 4.5 0RF (DME) pen needle, diabetic 31 gauge x 1/4 needle See Rx Instructions .ROUTE .MEDSUPPLY Qty: 100 0RF Rx Instructions: 4 times a day with insulin gabapentin 100 mg capsule 200 mg PO HS Qty: 60 0RF carvedilol [Coreg] 6.25 mg tablet 6.25 mg PO BID Qty: 60 0RF Rx Instructions: must administer with a meal/food amlodipine 5 mg tablet 5 mg PO DAILY Qty: 30 0RF Discontinued metformin 1,000 mg tablet 500 mg PO BID insulin glargine [Lantus Solostar U-100 Insulin] 100 unit/mL (3 mL) insulin pen 10 unit SQ BID Qty: 30 0RF Problem Reconciliation Problems Reviewed?: Yes Patient Discharge Instructions ACTIVITY: Continue current activity DIET: diabetic diet Stand Alone Forms: [facility] Work Release Patient Instructions: High Blood Pressure, DI for Malignant Hypertension Print Language: [place] Providers Primary Care Provider: Provider,Referral Admit Provider: Danny Wong Attending Provider: Danny Wong
[2025-08-03 08:00] VITALS: BP 158/105; PULSE 102; RESP 16; TEMP 36.6; O2SAT 99
[2025-08-03] MEDS: INSULIN GLARGINE 100 UNITS/ML 3ML FLEXPEN 15 UNIT SUBCUT (08:25)
[2025-08-03] MEDS: IRBESARTAN 75MG TABLET 75 MG PO (08:26)
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
[2025-08-03 11:28] LABS: POC Glucose,Bedside 244 gm/dL (70-110)
[2025-08-03] MEDS: AMLODIPINE 5MG TABLET 5 MG PO (12:17)
--- NOTE | 2025-08-03 13:11 | PC.NURSE ---
pt stated he would call and schedule his own appointments. pt stated he would have to go home and get his debit card and come back to [facility].
--- NOTE | 2025-08-05 10:57 | SW/DCPLANNER ---
Phoned patient x2 and was unable to leave a message due to his voice mail box not being sat up yet. Deneen Matute
[2025-08-08 20:10] LABS: Renin Activity, Plasma 0.544 ng/mL/hr (0.167-5.380)
[2025-08-11 22:40] LABS: Insulin Autoantibodies (IAA) <5.0 uU/mL (.)
== END 2025-08-03 13:11 | disposition home or self-care (01) ==
LOC: ER 10:58 → 2ND 15:58
PROVIDERS: Nurse Practitioner; Student in an Organized Health Care Education/Training Program; Admitting Provider Internal Medicine Adolescent Medicine; Emergency Provider Student in an Organized Health Care Education/Training Program; Visit Provider Internal Medicine Adolescent Medicine
DX: E11.65 Type 2 diabetes mellitus with hyperglycemia (principal); I10 Essential (primary) hypertension; E86.0 Dehydration; E11.40 Type 2 diabetes mellitus with diabetic neuropathy, unspecified; E83.42 Hypomagnesemia; I45.10 Unspecified right bundle-branch block; F17.200 Nicotine dependence, unspecified, uncomplicated; Z83.3 Family history of diabetes mellitus
CPT/HCPCS: 36415; 70450; 71045; 80053; 81001; 82009; 82088; 82803; 82962; 83036; 83519; 83690; 83735; 84244; 85025; 86337; 86341; 93005; 96361; 96372; 96374; 96375; 99285; G0378; J0360; J1650; J1885; J7030